=== PATIENT | female | born 1995 | race African-American/Black ===

== ENCOUNTER 2016-09-29 17:46 | Emergency (ER) | payer OTHER ==
[~2016-09-29] VITALS: Ht 162.6 cm; Wt 85.7 kg
[~2016-09-29 17:46] MED LIST: BACTRIM-DS1 EA PO; BENTYL10 MG ORAL; DONNATAL E16.2 MG/1 PO; DONNATAL TAB1 TAB PO; IBUPROFEN800 MG ORAL; NKM; POLYTRIM OP SOL10 ML OPHTHALM; TRAMADOL HCL50 MG ORAL; ZANTAC150 MG PO; bactrim suspension ORAL
[2016-09-29 18:11] VITALS: BP 104/70
[2016-09-29] MEDS ORDERED: HYDROCORTISONE28 G2 TP (18:31)
[2016-09-29] MEDS ORDERED: KENALOG 0.025%15 GM TP (18:31)
[2016-09-29] MEDS ORDERED: AQUAPHOR99 GM TP (18:31)
[2016-09-29] MEDS ORDERED: REGLAN10 MG ORAL (18:58)
[2016-09-29] MEDS ORDERED: IBUPROFEN600 MG ORAL (18:58)
[2016-09-29] MEDS ORDERED: Ketorolac 30mg Inj IM ONE (19:00)
[2016-09-29] MEDS ORDERED: Metoclopramide 10mg/10ml Liq ORAL ONE (19:00)
[2016-09-29 19:15] VITALS: BP 104/70
--- NOTE | 2016-09-29 19:25 | Emergency Room Report ---
History of Present Illness General Chief Complaint: Headache Source: Patient Present Illness HPI The patient is a 21-year-old female presenting for headache which began 3 days prior. The pain is described as an 8/10 frontal headache and does not radiate. The patient does admit to photophobia and nausea. The patient denies ever being diagnosed with migraines. The patient denies fever, neck pain or stiffness, vomiting, rash, chest pain, shortness of breath, abdominal pain Allergies: Coded Allergies: No Known Allergies (Unverified , 11/25/12) Patient History Past Medical History: see triage record Pertinent Family History: none Last Menstrual Period: 08/24/16 Reviewed Nursing Documentation: PMH: Agreed, PSxH: Agreed Nursing Documentation-PMH Past Medical History: No Stated History Hx Cancer: Yes - cervical cancer Review of Systems All Other Systems: negative except mentioned in HPI Physical Exam Vital Signs Date Time Temp Pulse Resp B/P Pulse Ox O2 Delivery O2 Flow Rate FiO2 09/29/16 17:51 98.1 77 16 104/70 100 Room Air Sp02 EP Interpretation: reviewed, normal General Appearance: no apparent distress, alert, GCS 15, non-toxic Head: normocephalic, atraumatic Eyes: bilateral eye PERRL, bilateral eye normal inspection ENT: hearing grossly normal, normal pharynx, no angioedema, normal voice Neck: full range of motion, supple/symm/no masses Respiratory: chest non-tender, lungs clear, normal breath sounds, speaking full sentences Cardiovascular #1: regular rate, rhythm, no edema Cardiovascular #2: 2+ carotid (R), 2+ carotid (L), 2+ radial (R), 2+ radial (L) , 2+ dorsalis pedis (R), 2+ dorsalis pedis (L) Gastrointestinal: normal bowel sounds, non tender, soft, non-distended, no guarding, no rebound Rectal: deferred Genitourinary: normal inspection, no CVA tenderness Musculoskeletal: back normal, gait/station normal, normal range of motion, non- tender Neurologic: alert, oriented x3, responsive, motor strength/tone normal, sensory intact, speech normal Psychiatric: judgement/insight normal, memory normal, mood/affect normal, no suicidal/homicidal ideation Reflexes: 3+ bicep (R), 3+ bicep (L), 3+ tricep (R), 3+ tricep (L), 3+ knee (R) , 3+ knee (L) Skin: normal color, no rash, warm/dry, well hydrated Lymphatic: no adenopathy Medical Decision Making PA Attestation Dr. Juarez is my supervising physician. Patient management was discussed with my supervising physician Diagnostic Impression: Primary Impression: Headache ER Course The patient is a 21-year-old female presenting for headache which began 3 days prior. Differential diagnoses include but not limited to Migraine, tension headache, dehydration PE: vitals within normal limits. No apparent distress Head is normocephalic atraumatic. Nontender. PERRL Full AROM of neck. Non tender. CN II-XII intact The patient is given Toradol and Reglan for pain with good relief. The patient will be discharged home with prescription for Reglan and Motrin. Patient will followup with primary care and is giving ER precautions Laboratory Tests Test 09/29/16 17:55 Urine HCG, Qualitative Negative Lab Results Impression Preg:neg Last Vital Signs Date Time Temp Pulse Resp B/P Pulse Ox O2 Delivery O2 Flow Rate FiO2 09/29/16 18:11 98.1 80 16 104/70 100 Room Air Status: improved Disposition: HOME, SELF-CARE Condition: Improved Scripts Metoclopramide Hcl* (REGLAN*) 10 Mg Tablet 10 MG ORAL THREE TIMES A DAY, #15 TAB Prov: ANIRUDH NAVARRO.A. 09/29/16 Ibuprofen* (MOTRIN*) 600 Mg Tablet 600 MG ORAL Q6H Y for For Pain, #30 TAB Prov: ANIRUDH NAVARRO.A. 09/29/16 Referrals: NON PHYSICIAN (PCP) Patient Instructions: General Headache Without Cause Additional Instructions: I discussed my findings with the patient. All questions and concerns have been answered. Treatment and medication compliance have been addressed. I advised the patient that they need to follow up with PMD in 3-5 days. Return to ED if symptoms worsen, new symptoms arise, or if needed for any reason. Patient verbalized understanding of discharge instructions. ANIRUDH NAVARRO Sep 29, 2016 19:25
== END 2016-09-29 19:38 | disposition home or self-care (01) ==
LOC: EMR 19:02
DX: R51 Headache (principal); H53.149 Visual discomfort, unspecified; R11.0 Nausea; Z85.41 Personal history of malignant neoplasm of cervix uteri
CPT/HCPCS: 81025; 96372; 99283; J1885

== ENCOUNTER 2017-02-22 17:09 | Emergency (ER) | payer OTHER ==
[~2017-02-22] VITALS: Ht 162.6 cm; Wt 100.7 kg
[~2017-02-22 17:09] MED LIST changes: +AQUAPHOR99 GM TP; +HYDROCORTISONE28 G2 TP; +IBUPROFEN600 MG ORAL; +KENALOG 0.025%15 GM TP; +REGLAN10 MG ORAL
[2017-02-22] MEDS ORDERED: AMOXICILLIN875 MG PO (17:34)
--- NOTE | 2017-02-22 17:37 | Emergency Room Report ---
History of Present Illness General Chief Complaint: To Be Triaged Present Illness HPI 21 y/o female c/o right sided jaw pain x 1 week. States that she has pain when she chews on her back wisdom tooth and feels a skin flap from the right side of her cheek that is swollen and sometimes gets between her teeth when she chews causing additional pain. Patient believes she may have a dental infection and is here for evaluation of sxs. No other modifying factors. Denies any current n/ v/f/c/d, abd pain, back pain, neck pain, photophobia, phonophobia, CP, SOB or headache. Allergies: Coded Allergies: No Known Allergies (Unverified , 11/25/12) Patient History Past Medical History: see triage record Past Surgical History: none Pertinent Family History: none Immunizations: UTD Reviewed Nursing Documentation: PMH: Agreed, PSxH: Agreed Nursing Documentation-PMH Hx Cancer: Yes - cervical cancer Review of Systems All Other Systems: negative except mentioned in HPI Physical Exam Vital Signs Date Time Temp Pulse Resp B/P Pulse Ox O2 Delivery O2 Flow Rate FiO2 02/22/17 17:32 98.6 69 18 125/80 99 Room Air Sp02 EP Interpretation: reviewed, normal General Appearance: no apparent distress, alert, GCS 15, non-toxic Head: normocephalic, atraumatic Eyes: bilateral eye normal inspection ENT: hearing grossly normal, normal pharynx, no angioedema, normal voice, uvula midline, other - right lower molar with pustular discharge. Neck: full range of motion, supple/symm/no masses Respiratory: chest non-tender, lungs clear, normal breath sounds, speaking full sentences Cardiovascular #1: regular rate, rhythm, no edema Musculoskeletal: gait/station normal Neurologic: alert, oriented x3, responsive, sensory intact, speech normal Psychiatric: judgement/insight normal, memory normal, mood/affect normal, no suicidal/homicidal ideation Skin: normal color, no rash, warm/dry, well hydrated Lymphatic: no adenopathy Medical Decision Making PA Attestation Dr. Hendrickson my supervising physician with whom patient management has been discussed with. Diagnostic Impression: Primary Impression: Dental caries Additional Impression: Infected tooth ER Course Pt. presents to the ED c/o tooth pain Ddx considered but are not limited to tooth fracture, chipped tooth, dental caries, dental infection, tooth abscess, tooth avulsion Vital signs: are WNL, pt. is afebrile H&PE are most consistent with dental caries with active infection ORDERS: none required at this time, the diagnosis is clinical ED INTERVENTIONS: none required at this time. DISCHARGE: At this time pt. is stable for d/c to home. Will provide printed patient care instructions, and any necessary prescriptions. Care plan and follow up instructions have been discussed with the patient prior to discharge. Chest X-Ray Diagnostic Results Chest X-Ray Ordered: No Last Vital Signs Date Time Temp Pulse Resp B/P Pulse Ox O2 Delivery O2 Flow Rate FiO2 02/22/17 17:49 98.6 18 125/80 99 Room Air 02/22/17 17:48 72 Status: unchanged Disposition: HOME, SELF-CARE Condition: Stable Scripts Amoxicillin (AMOXICILLIN) 875 Mg Tablet 875 MG PO Q12H for 7 Days, #14 TAB 0 Refills Prov: SAEID GRANT 02/22/17 Patient Instructions: Dental Abscess Additional Instructions: Keep mouth clean and rinse mouth out before and after each meal. Take medication as directed. Patient advised to follow up with dentist within 3-5 days. Patient should come back sooner if they experience any red areas that get bigger, more swollen, have pus draining from wound, or if the site becomes more painful. SAEID GRANT Feb 22, 2017 17:37
[2017-02-22 17:48] VITALS: BP 129/82
[2017-02-22 17:49] VITALS: BP 125/80
== END 2017-02-22 17:51 | disposition home or self-care (01) ==
LOC: EMR 17:25
DX: K02.9 Dental caries, unspecified (principal); K04.7 Periapical abscess without sinus; Z85.41 Personal history of malignant neoplasm of cervix uteri
CPT/HCPCS: 99283

== ENCOUNTER 2017-04-13 16:11 | Emergency (ER) | payer MEDICAID, OTHER ==
[~2017-04-13] VITALS: Ht 162.6 cm; Wt 90.7 kg
[~2017-04-13 16:11] MED LIST changes: +AMOXICILLIN875 MG PO
[2017-04-13] MEDS ORDERED: CHATEAL1 EACH PO (16:29)
[2017-04-13 16:49] VITALS: BP 114/77
--- NOTE | 2017-04-13 17:08 | Emergency Room Report ---
History of Present Illness General Chief Complaint: Nausea Source: Patient Present Illness HPI 21 YO Female presents to the ED c/O nausea and vomiting x 5 days. pt. denies abdominal pain, fevers, or chills. pt. denies , she reports some dysuria x 1 day. denies hematuria, frequency, constipation, or diarrhea. pt. denies ill contacts or recent travel. last bm was today. pt. Pt denies rashes. Pt. Denies CP, Palpitations, LOC, AMS, dizziness, Changes in Vision, Sensation, paresthesias, or a sudden severe headache. denies blood in the vomit or stool. pt. denies black tarry stools. Allergies: Coded Allergies: No Known Allergies (Unverified , 11/25/12) Patient History Past Medical History: see triage record Past Surgical History: none Pertinent Family History: none Last Menstrual Period: 03/31/17 Now: No Immunizations: UTD Reviewed Nursing Documentation: PMH: Agreed, PSxH: Agreed Nursing Documentation-PMH Hx Cancer: Yes - Cervical Cancer Review of Systems All Other Systems: negative except mentioned in HPI Physical Exam Vital Signs Date Time Temp Pulse Resp B/P Pulse Ox O2 Delivery O2 Flow Rate FiO2 04/13/17 16:22 98.8 70 16 111/75 98 Room Air Sp02 EP Interpretation: reviewed, normal General Appearance: no apparent distress, alert, GCS 15, non-toxic Head: normocephalic, atraumatic Eyes: bilateral eye PERRL, bilateral eye normal inspection ENT: hearing grossly normal, normal pharynx, no angioedema, normal voice Neck: full range of motion, supple/symm/no masses Respiratory: lungs clear, normal breath sounds, speaking full sentences Cardiovascular #1: regular rate, rhythm, no edema Gastrointestinal: normal bowel sounds, non tender, soft, no guarding, no rebound, other - Negative [place] signs, Negative MacBurney's sign, Negative Rosvigns Sign, Negative Psoas, No Peritoneal signs. Rectal: deferred Genitourinary: normal inspection, no CVA tenderness, no vertebral tenderness Musculoskeletal: back normal, gait/station normal, normal range of motion, non- tender Neurologic: alert, oriented x3, responsive, motor strength/tone normal, sensory intact, speech normal Psychiatric: judgement/insight normal, memory normal, mood/affect normal Skin: normal color, no rash, warm/dry, well hydrated Medical Decision Making PA Attestation Dr. iqbal is my supervising Physician whom patient management has been discussed with. Diagnostic Impression: Primary Impression: UTI (urinary tract infection) Qualified Codes: N30.01 - Acute cystitis with hematuria Additional Impression: Nausea and vomiting in adult patient ER Course 21 YO Female presents to the ED c/O nausea and vomiting x 5 days. pt. denies abdominal pain, fevers, or chills. pt. denies , she reports some dysuria x 1 day. denies hematuria, frequency, constipation, or diarrhea. pt. denies ill contacts or recent travel. last bm was today. pt. Pt denies rashes. Pt. Denies CP, Palpitations, LOC, AMS, dizziness, Changes in Vision, Sensation, paresthesias, or a sudden severe headache. denies blood in the vomit or stool. pt. denies black tarry stools. Ddx considered but are not limited to GE, colitis, acute appendicitis, SBO, * , dehydration Vital signs: pt. is afebrile, NAD, Non-Toxic H&PE are most consistent with GE will r/o , and assess for UTI, benign abdominal exam. i do not suspect an acute emergent condition at this time. ORDERS: -Urine Hcg: negative -UA: moderate bacteria with elevated leuks and wbc's and RBc's ED INTERVENTIONS: -4mg zofran PO for nausea. -Oral Fluid challenge: Pt. able to tolerate fluids. d/w pt. results of laboratory testing. offered to rx pt. zofran she states she just wants abx, she did not like the flavor of the zofran and felt more nauseated despite being able to tolerate fluids now. DISCHARGE: At this time pt. is stable for d/c to home. Will provide printed patient care instructions, and any necessary prescriptions. Care plan and follow up instructions have been discussed with the patient prior to discharge. Labs Test 04/13/17 16:42 Urine Color Yellow Urine Appearance Cloudy Urine pH 5 (4.5-8.0) Urine Specific [place] 1.020 (1.005-1.035) Urine Protein 1+ (NEGATIVE) Urine Glucose (UA) Negative (NEGATIVE) Urine Ketones Negative (NEGATIVE) Urine Occult Blood 1+ (NEGATIVE) Urine Nitrite Negative (NEGATIVE) Urine Bilirubin Negative (NEGATIVE) Urine Urobilinogen Normal MG/DL (0.0-1.0) Urine Leukocyte Esterase 3+ (NEGATIVE) Urine RBC 5-10 /HPF (0 - 2) Urine WBC 30-40 /HPF (0 - 2) Urine Squamous Epithelial Cells Many /LPF (NONE/OCC) Urine Bacteria Many /HPF (NONE) Urine HCG, Qualitative Negative Last Vital Signs Date Time Temp Pulse Resp B/P Pulse Ox O2 Delivery O2 Flow Rate FiO2 04/13/17 16:49 98.7 73 15 114/77 99 Room Air Disposition: HOME, SELF-CARE Condition: Stable Scripts Nitrofurantoin Monohyd/M-Cryst* (MACROBID 100 MG*) 100 Mg Capsule 100 MG ORAL EVERY 12 HOURS for 5 Days, #10 CAP Prov: Laura Ferguson 04/13/17 Patient Instructions: Nausea and Vomiting, Adult, Urinary Tract Infection, Easy -to-Read Additional Instructions: Take medications as directed. Follow up with a Primary Care Provider in 3-5 days, even if your symptoms have resolved. --Please review list of primary care clinics, if you do not already have a primary care provider Return sooner to ED if new symptoms occur, or current symptoms become worse. - Please note that this Emergency Department Report was dictated using [employer] h[employer] technology software, occasionally this can lead to erroneous entry secondary to interpretation by the dictation equipment. Laura Ferguson Apr 13, 2017 17:08
[2017-04-13 17:22] LABS: APPEARANCE,URINE CLOUDY; KETONES,URINE NEGATIVE (NEGATIVE); LEUKOCYTE ESTERASE ,URINE 3+ (NEGATIVE); NITRITE,URINE NEGATIVE (NEGATIVE); PH,URINE 5 (4.5-8.0); PROTEIN,URINE 1+ (NEGATIVE); UROBILINOGEN,URINE NORMAL MG/DL (0.0-1.0)
[2017-04-13 17:35] LABS: BACTERIA,URINE MANY /HPF; SQUAMOUS EPITHELIAL CELL,UR MANY /LPF (NONE/OCC); WBC,URINE 30-40 /HPF (0 - 2)
[2017-04-13] MEDS ORDERED: NITROFURANTOIN100 M2 ORAL (17:55)
[2017-04-13 18:06] VITALS: BP 114/77
== END 2017-04-13 18:07 | disposition home or self-care (01) ==
LOC: EMR 17:05
DX: R11.2 Nausea with vomiting, unspecified (principal); N30.01 Acute cystitis with hematuria; Z85.41 Personal history of malignant neoplasm of cervix uteri
CPT/HCPCS: 81003; 81025; 87086; 99283

== ENCOUNTER 2017-04-21 06:26 | Emergency (ER) | payer MEDICAID, OTHER ==
[~2017-04-21] VITALS: Ht 162.6 cm; Wt 90.7 kg
[~2017-04-21 06:26] MED LIST changes: +CHATEAL1 EACH PO; +NITROFURANTOIN100 M2 ORAL
[2017-04-21 07:09] LABS: APPEARANCE,URINE SLIGHTLY CLOUDY; KETONES,URINE NEGATIVE (NEGATIVE); LEUKOCYTE ESTERASE ,URINE 3+ (NEGATIVE); NITRITE,URINE NEGATIVE (NEGATIVE); PH,URINE 5 (4.5-8.0); PROTEIN,URINE 1+ (NEGATIVE); UROBILINOGEN,URINE 1 MG/DL (0.0-1.0)
--- NOTE | 2017-04-21 07:16 | Emergency Room Report ---
History of Present Illness General Chief Complaint: Allergic Reaction Source: Patient Present Illness HPI This patient states that she just finished a course of Macrobid this morning. She states after she took the Macrobid she felt itchy with a rash on her body. She was also concerned that she was having throat swelling. She denies any other new exposures. She states she feels much better than when she was seen last week. She denies fever or chills. She denies nausea or vomiting. She has no other complaints. Allergies: Coded Allergies: No Known Allergies (Unverified , 11/25/12) Patient History Past Medical History: none, see triage record Past Surgical History: other - LEEP, cervical ca Social History: Denies: alcohol use, drug use, smoking Last Menstrual Period: 04/07/17 Now: No Reviewed Nursing Documentation: PMH: Agreed, PSxH: Agreed Nursing Documentation-PMH Past Medical History: No History, Except For Hx Cancer: Yes - Cervical Cancer Hx Gastrointestinal Problems: No - Hx Neurological Problems: No - leep procedure and left knee surgery Review of Systems All Other Systems: negative except mentioned in HPI Physical Exam Vital Signs Date Time Temp Pulse Resp B/P Pulse Ox O2 Delivery O2 Flow Rate FiO2 04/21/17 06:33 98.1 82 16 124/81 98 Room Air Sp02 EP Interpretation: reviewed, normal General Appearance: no apparent distress, alert, GCS 15, non-toxic Head: normocephalic, atraumatic Eyes: bilateral eye PERRL, bilateral eye normal inspection ENT: hearing grossly normal, normal pharynx, no angioedema, normal voice Neck: full range of motion, supple/symm/no masses Respiratory: chest non-tender, lungs clear, normal breath sounds, speaking full sentences Cardiovascular #1: regular rate, rhythm, no edema Gastrointestinal: normal bowel sounds, non tender, soft, non-distended, no guarding, no rebound Rectal: deferred Musculoskeletal: back normal, gait/station normal, normal range of motion Neurologic: alert, oriented x3, responsive, motor strength/tone normal, sensory intact, speech normal Psychiatric: judgement/insight normal, memory normal, mood/affect normal, no suicidal/homicidal ideation Skin: warm/dry, well hydrated, other - erythema raised on L. anticubital region c/w hive. Medical Decision Making Diagnostic Impression: Primary Impression: Allergic reaction ER Course This patient has a clinical presentation consistent with a mild allergic reaction. There is severe edema on the left antecubital region that could be a high versus an area of excoriation secondary to pruritus. There are no obvious diffuse hives. Patient's oropharynx is clear. Patient lung exam is clear. Overall, this patient's evaluation is benign. There is no respiratory distress , stridor or evidence of anaphylaxis. I did give the patient oral Benadryl. I will also place the patient on Benadryl as an outpatient. The patient has finished her Macrobid to she has no further exposures. I reviewed the urine culture from her previous visit and it was only mixed growth. The patient feels much better from her previous visit. Overall she is well appearing. She is given close return precautions and followup instructions. Labs Test 04/21/17 06:50 Urine Color Yellow Urine Appearance Slightly cloudy Urine pH 5 (4.5-8.0) Urine Specific [place] 1.025 (1.005-1.035) Urine Protein 1+ (NEGATIVE) Urine Glucose (UA) Negative (NEGATIVE) Urine Ketones Negative (NEGATIVE) Urine Occult Blood 1+ (NEGATIVE) Urine Nitrite Negative (NEGATIVE) Urine Bilirubin Negative (NEGATIVE) Urine Urobilinogen 1 MG/DL (0.0-1.0) Urine Leukocyte Esterase 3+ (NEGATIVE) Urine RBC 2-4 /HPF (0 - 2) Urine WBC 5-10 /HPF (0 - 2) Urine Squamous Epithelial Cells Moderate /LPF (NONE/OCC) Urine Bacteria Few /HPF (NONE) Urine Mucus Few /LPF (NONE/OCC) Last Vital Signs Date Time Temp Pulse Resp B/P Pulse Ox O2 Delivery O2 Flow Rate FiO2 04/21/17 06:33 98.1 82 16 124/81 98 Room Air Status: improved Disposition: HOME, SELF-CARE Condition: Improved Patient Instructions: Drug Allergy MERRY LEACH D.O. Apr 21, 2017 07:15
[2017-04-21 07:27] LABS: BACTERIA,URINE FEW /HPF; MUCUS,URINE FEW /LPF (NONE/OCC); SQUAMOUS EPITHELIAL CELL,UR MODERATE /LPF (NONE/OCC)
[2017-04-21] MEDS ORDERED: BENADRYL25 MG ORAL (07:37)
[2017-04-21 07:42] VITALS: BP 121/76
== END 2017-04-21 07:42 | disposition home or self-care (01) ==
LOC: EMR 07:12
DX: R21 Rash and other nonspecific skin eruption (principal); Z85.41 Personal history of malignant neoplasm of cervix uteri; T37.8X5A Adverse effect of other specified systemic anti-infectives and antiparasitics, initial encounter; Y92.9 Unspecified place or not applicable
CPT/HCPCS: 81003; 99283

== ENCOUNTER 2017-07-10 14:16 | Emergency (ER) | payer OTHER ==
[~2017-07-10] VITALS: Ht 162.6 cm; Wt 81.6 kg
[~2017-07-10 14:16] MED LIST changes: +BENADRYL25 MG ORAL
[2017-07-10] MEDS ORDERED: AZITHROMYCIN250 MG ORAL (14:39)
[2017-07-10] MEDS ORDERED: PROMETH-CODEIN 65 ML PO (14:39)
[2017-07-10] MEDS ORDERED: ALBUTEROL SULF8.5 GM INH (14:39)
[2017-07-10 14:49] VITALS: BP 118/75
[2017-07-10 14:50] VITALS: BP 118/75
--- NOTE | 2017-07-10 15:15 | Emergency Room Report ---
History of Present Illness General Chief Complaint: Upper Respiratory Illness Source: Patient, Medical Record Present Illness HPI Patient presents emergency department today complaining of cough and congestion. Patient also complains of headache sinus symptoms. Patient also complains of sore throat. Patient states that she's had symptoms for about 2 weeks. She has some shortness of breath which is coughing. She states that she cannot sleep for a wall because of headache and coughing. She denies any fever. There is no neck pain. There is no leg pain leg swelling. Symptoms noted to be moderate. Patient will likely start antibiotics in the severity of her symptoms. No other modifying factors. No other associated signs and symptoms. No other complaints were noted. Allergies: Coded Allergies: No Known Allergies (Unverified , 11/25/12) Patient History Past Medical History: none Past Surgical History: none Pertinent Family History: none Social History: Denies: smoking, alcohol use, drug use Last Menstrual Period: 05/31/17 Reviewed Nursing Documentation: PMH: Agreed, PSxH: Agreed Nursing Documentation-PMH Past Medical History: No History, Except For Hx Cancer: Yes - Cervical Cancer Hx Gastrointestinal Problems: No - Hx Neurological Problems: No - leep procedure and left knee surgery Review of Systems All Other Systems: negative except mentioned in HPI Physical Exam Vital Signs Date Time Temp Pulse Resp B/P (MAP) Pulse Ox O2 Delivery O2 Flow Rate FiO2 07/10/17 14:19 98.2 95 16 118/75 98 Room Air Sp02 EP Interpretation: reviewed, normal General Appearance: normal inspection, well appearing, no apparent distress, alert Head: atraumatic Eyes: bilateral eye normal inspection ENT: normal ENT inspection, hearing grossly normal, normal voice, other - nasal congestion Neck: normal inspection, full range of motion, supple, no bony tend Respiratory: normal inspection, lungs clear, normal breath sounds, no respiratory distress, no retraction, no wheezing Cardiovascular #1: regular rate, rhythm, no edema Gastrointestinal: normal inspection, normal bowel sounds, non tender, soft, no guarding, no hernia Genitourinary: no CVA tenderness Musculoskeletal: normal inspection, back normal, normal range of motion Neurologic: normal inspection, alert, responsive, speech normal Psychiatric: normal inspection, judgement/insight normal, mood/affect normal Skin: normal inspection, normal color, no rash Medical Decision Making Diagnostic Impression: Primary Impression: Cough ER Course Patient presents emergency department today complaining cough congestion and some sinus tenderness and sore throat. Differential considerations include viral syndrome, pneumonia, sinusitis just name a few. Patient has symptoms greater than 2 weeks. Therefore I felt that l could be a complicated sinusitis and patient should start to take antibiotics. Patient was given a prescription for Zithromax. Patient was given cough syrup and albuterol.Patient is advised to follow up with primary doctor in 2-3 days and return the emergency room for any worsening symptoms and as needed. Last Vital Signs Date Time Temp Pulse Resp B/P (MAP) Pulse Ox O2 Delivery O2 Flow Rate FiO2 07/10/17 14:50 98.2 92 16 118/75 98 Room Air Status: improved Disposition: HOME, SELF-CARE Condition: Stable Scripts Promethazine HCl/Codeine (Prometh-Codein 6.25-10 mg/5 ml) 5 Ml Syrup 5 ML PO TID for For Cough for 7 Days, ML Prov: JEREMIAS PIMENTEL M.D. 07/10/17 Azithromycin* (ZITHROMAX*) 250 Mg Tablet 250 MG ORAL DAILY, #6 TAB 0 Refills Take two tablets by mouth today, then take one tablet by mouth daily for four days Prov: JEREMIAS PIMENTEL M.D. 07/10/17 Albuterol Sulfate* (ALBUTEROL SULFATE MDI*) 8.5 Gm Hfa.aer.ad 2 PUFF INH Q4H Y for cough/wheezing, #1 EA 0 Refills Prov: JEREMIAS PIMENTEL M.D. 07/10/17 Referrals: [facility] (PCP) Departure Forms: Return to School, Return to School On: Jul 14, 2017 School Release Restrictions: None Return to Work Return to Work in (Days): 3 Return to Work Date: Jul 14, 2017 Patient Instructions: Sinusitis, Adult JEREMIAS PIMENTEL M.D. Jul 10, 2017 15:15
== END 2017-07-10 14:50 | disposition home or self-care (01) ==
LOC: EMR 14:30
DX: R05 Cough (principal); Z85.41 Personal history of malignant neoplasm of cervix uteri
CPT/HCPCS: 99283

== ENCOUNTER 2017-08-21 22:31 | Emergency (ER) | payer OTHER ==
[~2017-08-21] VITALS: Ht 162.6 cm; Wt 81.6 kg
[~2017-08-21 22:31] MED LIST changes: +ALBUTEROL SULF8.5 GM INH; +AZITHROMYCIN250 MG ORAL; +PROMETH-CODEIN 65 ML PO
[2017-08-21 23:00] VITALS: BP 110/70
--- NOTE | 2017-08-21 23:01 | Emergency Room Report ---
History of Present Illness General Chief Complaint: Chest Pain Source: Patient Present Illness HPI 22-year-old female walked in with 2-3 days of chest pain Pain worse with deep breathing Pain worse with movement Associated with cough but cough has been better Eyes any fevers chills or other URI symptoms Per Emr, patient here about a month ago with URI symptoms, was given Z-Armando and supportive treatment Denies smoking, asthma history, other medical problems Denies history of early ACS or PE in family Did not take any medication for pain Allergies: Coded Allergies: No Known Allergies (Unverified , 11/25/12) Patient History Past Medical History: none Past Surgical History: none Pertinent Family History: none Social History: Denies: smoking, alcohol use, drug use Last Menstrual Period: 07/19/17 Now: No Immunizations: UTD Reviewed Nursing Documentation: PMH: Agreed, PSxH: Agreed Nursing Documentation-PMH Hx Cancer: Yes - Cervical Cancer Hx Gastrointestinal Problems: No - Hx Neurological Problems: No - leep procedure and left knee surgery Review of Systems All Other Systems: negative except mentioned in HPI Physical Exam Vital Signs Date Time Temp Pulse Resp B/P (MAP) Pulse Ox O2 Delivery O2 Flow Rate FiO2 08/21/17 22:45 98.2 79 12 117/67 96 Room Air Sp02 EP Interpretation: reviewed, normal General Appearance: normal inspection, well appearing, no apparent distress, alert, GCS 15, non-toxic, obese Head: normocephalic, atraumatic Eyes: bilateral eye PERRL, bilateral eye EOMI ENT: normal ENT inspection, hearing grossly normal, normal voice Neck: normal inspection, full range of motion, supple, no bony tend Respiratory: normal inspection, lungs clear, normal breath sounds, no respiratory distress, no retraction, no accessory muscle use, no wheezing, speaking full sentences, other - Palpation midsternum recreates pain, chest symmetrical Cardiovascular #1: regular rate, rhythm, no edema Gastrointestinal: normal inspection, normal bowel sounds, non tender, soft, no guarding, no hernia Genitourinary: no CVA tenderness Musculoskeletal: normal inspection, back normal, normal range of motion, Vero' s Sign negative Neurologic: normal inspection, alert, oriented x3, responsive, 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 nml as tested, motor strength/tone normal, speech normal Psychiatric: normal inspection, judgement/insight normal, mood/affect normal Skin: normal inspection, normal color, no rash Lymphatic: normal inspection Medical Decision Making Diagnostic Impression: Primary Impression: Chest pain Qualified Codes: R07.9 - Chest pain, unspecified ER Course 22-year-old female with chest pain Signs stable, afebrile Low suspicion for ACS or PE given well appearance, normal vital signs, and duration of symptoms, and no CAD risk factors, no PE risk factors ECg no ischemia or Right heart strain Recent URI symptoms, possibly contributing to costochondritis Was given IM Toradol with improvement No history of asthma or smoking or COPD Lungs clear on exam, low suspicion for pneumothorax Recommended Motrin, close to primary care followup ER course: Patient has remained stable during ED stay. Patient is to be discharged to home. Prescriptions given are motrin Patient is instructed to follow up with their primary care doctor within 5 days. Strict return precautions discussed with patient such as fever, chills, worsening/severe pain, nausea, vomiting, which may indicate severe illness. Patient verbalizes understanding and agrees with plan. Please note that this Emergency Department Report was dictated using [employer] development specialist technology software, occasionally this can lead to erroneous entry secondary to interpretation by the dictation equipment EKG Diagnostic Results Rate: normal Rhythm: NSR ST Segments: no acute changes ASA given to the pt in ED: No Last Vital Signs Date Time Temp Pulse Resp B/P (MAP) Pulse Ox O2 Delivery O2 Flow Rate FiO2 08/21/17 22:45 98.2 79 12 117/67 96 Room Air Status: improved Disposition: HOME, SELF-CARE MIGUEL ANGEL ALFONSO M.D. Aug 21, 2017 23:01
[2017-08-21] MEDS ORDERED: IBUPROFEN600 MG ORAL (23:14)
[2017-08-21] MEDS ORDERED: Ketorolac 60mg Inj IM ONE (23:15)
[2017-08-21 23:24] VITALS: BP 110/70
== END 2017-08-21 23:23 | disposition home or self-care (01) ==
LOC: EMR 22:59
DX: R07.9 Chest pain, unspecified (principal); Z85.41 Personal history of malignant neoplasm of cervix uteri; Z98.890 Other specified postprocedural states
CPT/HCPCS: 96372; 99283

== ENCOUNTER 2017-09-25 23:08 | Emergency (ER) | payer OTHER ==
[~2017-09-25] VITALS: Ht 162.6 cm; Wt 101.2 kg
[2017-09-25] MEDS ORDERED: NKM (23:19)
[2017-09-26] MEDS ORDERED: ZOFRAN ODT4 MG ORAL (00:06)
[2017-09-26 00:31] VITALS: BP 128/80
--- NOTE | 2017-09-26 02:06 | Emergency Room Report ---
History of Present Illness General Chief Complaint: Vomiting Source: Patient Present Illness HPI Patient was diagnosed several days ago with bacterial vaginosis is on Flagyl Patient has previous diarrhea Now had 2 episodes of nausea and vomiting Had some mild epigastric discomfort and lower suprapubic discomfort Denies any chest pain or shortness of breath denies any neck pain or photophobia Given the new symptoms patient was concerning came to the ER Allergies: Coded Allergies: No Known Allergies (Unverified , 11/25/12) Patient History Past Medical History: see triage record Pertinent Family History: none Last Menstrual Period: Aug Reviewed Nursing Documentation: PMH: Agreed, PSxH: Agreed Nursing Documentation-PMH Hx Cancer: Yes - Cervical Cancer Hx Gastrointestinal Problems: No - Hx Neurological Problems: No - leep procedure and left knee surgery Review of Systems All Other Systems: negative except mentioned in HPI Physical Exam Vital Signs Date Time Temp Pulse Resp B/P (MAP) Pulse Ox O2 Delivery O2 Flow Rate FiO2 09/25/17 23:14 98.1 84 16 128/80 100 Room Air Sp02 EP Interpretation: reviewed, normal General Appearance: well appearing, no apparent distress Head: normocephalic, atraumatic Eyes: bilateral eye EOMI, bilateral eye other - Patient has colored contacts and the pupil exam is difficult ENT: hearing grossly normal, normal pharynx, TMs + canals normal, uvula midline Neck: full range of motion, supple, no meningismus, no bony tend Respiratory: lungs clear, normal breath sounds, no rhonchi, no respiratory distress, no retraction, no accessory muscle use Cardiovascular #1: normal peripheral pulses, regular rate, rhythm, no edema, no gallop, no JVD, no murmur Gastrointestinal: normal bowel sounds, non tender, soft, no mass, no organomegaly, non-distended, no guarding, no hernia, no pulsatile mass, no rebound Genitourinary: no CVA tenderness Musculoskeletal: normal inspection Neurologic: oriented x3, responsive, financial supervisor III-XII nml as tested, motor strength/ tone normal, sensory intact Psychiatric: mood/affect normal Skin: normal color, no rash, warm/dry, palpation normal Lymphatic: normal inspection, no adenopathy Medical Decision Making Diagnostic Impression: Primary Impression: vomiting Additional Impression: abdominal pain ER Course With the patient's history and examination, multiple differentials considered, including but not limited to , ectopic , ovarian torsion, gastritis, cholecystitis, pancreatitis, appendicitis Patient's abdominal exam is fairly benign At this time given the vomiting and diarrhea likely viral pathology Patient also has been on Flagyl which could be essentially causing some discomfort as well Patient otherwise does not appear septic or toxic did not require initial blood work evaluations in the ER and will have close outpatient followup Last Vital Signs Date Time Temp Pulse Resp B/P (MAP) Pulse Ox O2 Delivery O2 Flow Rate FiO2 09/26/17 00:31 98.1 86 16 128/80 100 Room Air Status: improved Disposition: HOME, SELF-CARE Condition: Improved Scripts Ondansetron Odt* (ZOFRAN ODT*) 4 Mg Tab.rapdis 4 MG ORAL Q8HR Y for Nausea & Vomiting, #12 TAB 0 Refills Prov: RHODA OATES D.O. 09/26/17 Referrals: [facility],REFERRING (PCP) Patient Instructions: Nausea and Vomiting, Adult, Abdominal Pain, Adult, Easy- to-Read Additional Instructions: Patient is provided with the discharge instructions notified to follow up with primary doctor in the next 2-3 days otherwise return to the er with any worsening symptoms. Please note that this report is being documented using [email or web address] technology. This can lead to erroneous entry secondary to incorrect interpretation by the dictating instrument. RHODA OATES D.O. Sep 26, 2017 02:06
== END 2017-09-26 00:33 | disposition home or self-care (01) ==
LOC: EMR 23:42
DX: R11.10 Vomiting, unspecified (principal); R10.9 Unspecified abdominal pain; Z85.41 Personal history of malignant neoplasm of cervix uteri
CPT/HCPCS: 99283

== ENCOUNTER 2017-11-07 21:34 | Emergency (ER) | payer MEDICAID, OTHER ==
[~2017-11-07] VITALS: Ht 162.6 cm; Wt 127.0 kg
[~2017-11-07 21:34] MED LIST changes: +ZOFRAN ODT4 MG ORAL
[2017-11-07 21:50] VITALS: BP 122/82
[2017-11-07] MEDS ORDERED: PSEUDOEPHEDRINE60 MG PO (22:09)
[2017-11-07] MEDS ORDERED: IBUPROFEN600 MG ORAL (22:09)
--- NOTE | 2017-11-07 22:09 | Emergency Room Report ---
History of Present Illness General Chief Complaint: General Complaint Source: Patient Present Illness HPI Is a 22-year-old female with no past medical history. She presents with 2-3 days history of congestion ear popping, sore throat, cough. Denies any chest pain. Denies any sputum. Pain is 7/10. Allergies: Coded Allergies: NITROFURANTOIN (Verified Allergy, Unknown, 11/07/17) Patient History Past Medical History: see triage record, old chart reviewed Past Surgical History: none Pertinent Family History: none Social History: Denies: smoking Last Menstrual Period: oct 01 Now: No : 1 Immunizations: other Reviewed Nursing Documentation: PMH: Agreed, PSxH: Agreed Nursing Documentation-PMH Hx Cancer: Yes - Cervical Cancer Hx Gastrointestinal Problems: No - Hx Neurological Problems: No - leep procedure and left knee surgery Review of Systems Eye: Denies: eye pain, blurred vision ENT: Reports: ear pain, nose congestion, throat pain, Denies: throat swelling Respiratory: Reports: cough, Denies: shortness of breath Cardiovascular: Denies: chest pain, palpitations Gastrointestinal: Denies: abdominal pain, diarrhea, nausea, vomiting Musculoskeletal: Denies: back pain, joint pain Skin: Denies: rash Neurological: Denies: headache, numbness Endocrine: Denies: increased thirst, increased urine Hematologic/Lymphatic: Denies: easy bruising All Other Systems: negative except mentioned in HPI Physical Exam Vital Signs Date Time Temp Pulse Resp B/P (MAP) Pulse Ox O2 Delivery O2 Flow Rate FiO2 11/07/17 21:43 98.0 78 18 119/81 99 Room Air 98.1 vitals normal Sp02 EP Interpretation: reviewed, normal General Appearance: well appearing, no apparent distress, alert Head: normocephalic, atraumatic Eyes: bilateral eye PERRL, bilateral eye EOMI ENT: hearing grossly normal, normal pharynx, other - Small effusion in left TM Neck: full range of motion, supple, no meningismus Respiratory: chest non-tender, lungs clear, normal breath sounds Cardiovascular #1: regular rate, rhythm, no murmur Gastrointestinal: normal bowel sounds, non tender, no mass, no organomegaly, no bruit, non-distended Musculoskeletal: back normal, gait/station normal, normal range of motion Psychiatric: mood/affect normal Skin: warm/dry Medical Decision Making Diagnostic Impression: Primary Impression: URI (upper respiratory infection) Qualified Codes: J06.9 - Acute upper respiratory infection, unspecified ER Course Patient presents with a viral illness. No evidence of sepsis, meningitis, or other serious bacterial infection. Last Vital Signs Date Time Temp Pulse Resp B/P (MAP) Pulse Ox O2 Delivery O2 Flow Rate FiO2 11/07/17 21:43 98.0 78 18 119/81 99 Room Air 98.1 Status: unchanged Disposition: HOME, SELF-CARE Condition: Stable Scripts Pseudoephedrine Hcl* (SUDAFED*) 60 Mg Tablet 60 MG PO Q6H, #20 TAB Prov: ELLIOTT CASTILLO M.D. 11/07/17 Ibuprofen* (MOTRIN*) 600 Mg Tablet 600 MG ORAL Q6H Y for For Pain, #30 TAB Prov: ELLIOTT CASTILLO M.D. 11/07/17 Additional Instructions: Followup with your Dr. in 7 days. Return if symptom worsen. ELLIOTT CASTILLO M.D. Nov 07, 2017 22:09
[2017-11-07 22:15] VITALS: BP 125/79
[2017-11-07 22:20] VITALS: BP 125/79
== END 2017-11-07 22:20 | disposition home or self-care (01) ==
LOC: EMR 21:55
DX: J06.9 Acute upper respiratory infection, unspecified (principal); Z88.0 Allergy status to penicillin; Z85.41 Personal history of malignant neoplasm of cervix uteri
CPT/HCPCS: 99283

== ENCOUNTER 2017-11-18 12:05 | Emergency (ER) | payer OTHER ==
[~2017-11-18] VITALS: Ht 162.6 cm; Wt 98.4 kg
[~2017-11-18 12:05] MED LIST changes: +PSEUDOEPHEDRINE60 MG PO
[2017-11-18] MEDS ORDERED: Tetracaine 0.5% Opth 4ml Soln LEFT EYE ONE (12:30)
[2017-11-18] MEDS ORDERED: Fluorescein Strips LEFT EYE ONE (12:30)
[2017-11-18 12:35] VITALS: BP 120/79
--- NOTE | 2017-11-18 12:35 | Emergency Room Report ---
History of Present Illness General Chief Complaint: Eye Problems Source: Patient, Medical Record Present Illness HPI 22 yo female patient presents to ER complaining of left eye redness x2 days. Patient complains of itchiness and photophobia. Reports feeling of "scratched eye". Patient reports wearing contacts. Reports yellow crusting of eyes. Patient denies contact with similar symptoms. Denies pain with eye movement. Patient denies fever, nausea, vomiting, vertigo. Patient denies chest pain, SOB, rash. Allergies: Coded Allergies: NITROFURANTOIN (Verified Allergy, Unknown, 11/07/17) Patient History Past Medical History: see triage record Last Menstrual Period: 10/01/17 Reviewed Nursing Documentation: PMH: Agreed, PSxH: Agreed Nursing Documentation-PMH Past Medical History: No History, Except For Hx Cancer: Yes - Cervical Cancer Hx Gastrointestinal Problems: No - Hx Neurological Problems: No - leep procedure and left knee surgery Review of Systems All Other Systems: negative except mentioned in HPI Physical Exam Vital Signs Date Time Temp Pulse Resp B/P (MAP) Pulse Ox O2 Delivery O2 Flow Rate FiO2 11/18/17 12:13 99.1 82 18 120/79 98 Room Air 99.1 Sp02 EP Interpretation: reviewed, normal General Appearance: well appearing, no apparent distress, alert, GCS 15 Head: normocephalic, atraumatic Eyes: left eye photophobia, left eye Scleral Injection, bilateral eye normal inspection, bilateral eye PERRL, bilateral eye EOMI ENT: hearing grossly normal, normal pharynx, no angioedema, normal voice, uvula midline, moist mucus membranes Neck: full range of motion Respiratory: lungs clear, normal breath sounds, no rhonchi, no respiratory distress, no accessory muscle use, no wheezing, speaking full sentences Cardiovascular #1: regular rate, rhythm Musculoskeletal: back normal, digits/nails normal, gait/station normal, normal range of motion, non-tender Neurologic: alert, oriented x3, responsive, motor strength/tone normal, sensory intact Skin: no rash Lymphatic: no adenopathy Medical Decision Making PA Attestation Dr. Sullivan is my supervising Physician whom patient management has been discussed with. Diagnostic Impression: Primary Impression: Bacterial conjunctivitis of left eye ER Course Pt. presents to the ED c/o eye pain. Ddx considered but are not limited to FB in eye, corneal abrasion, corneal ulcer , blepharitis, subconjunctival hemorrhage. Vital signs: are WNL, pt. is afebrile PERFORM VISUAL ACUITY: performed without contacts. See nurse chart for results. Patient does not have glasses. Patient instructed to follow up with home attendant. Lid Eversion ORDERS: Ophthalmic Tetracaine. Fluorescein stain of left eye. No uptake of fluorescein, negative for corneal abrasion. ED INTERVENTIONS: None required at this time. DISCHARGE: - Rx provided for OCUFLOX, place 2 drops in affected eye BID for 7 days At this time pt. is stable for d/c to home. Patient resting comfortably, in no acute distress, nontoxic appearing, smiling and laughing. Will provide printed patient care instructions and any necessary prescriptions. Care plan and follow up instructions have been discussed with the patient prior to discharge Follow-up with clinical trial educator in 24 hours. Do not scratch or rub eye. Follow-up with primary care provider in 1- 3 days. Take medications as directed. Patient questions asked and answered. ER precautions given, patient instructed to return to ER immediately for any new or worsening of symptoms. Last Vital Signs Date Time Temp Pulse Resp B/P (MAP) Pulse Ox O2 Delivery O2 Flow Rate FiO2 11/18/17 12:13 99.1 82 18 120/79 98 Room Air 99.1 Disposition: HOME, SELF-CARE Condition: Stable Scripts Ofloxacin (OCUFLOX) 5 Ml Drops 2 DROP OP Q4HR for 7 Days, ML Prov: Jamarcus Still 11/18/17 Patient Instructions: Bacterial Conjunctivitis, [id number] Additional Instructions: Followup with primary care provider in 1-3 days. Followup with eye doctor for further treatment. Do not touch eyes. Take medications as directed. Patient questions asked and answered. ER precautions given, patient instructed to return to ER immediately for any new or worsening of symptoms. Jamarcus Still Nov 18, 2017 12:35
[2017-11-18] MEDS ORDERED: OCUFLOX5 ML OP (12:46)
[2017-11-18 12:54] VITALS: BP 120/79
== END 2017-11-18 14:00 | disposition home or self-care (01) ==
LOC: EMR 13:30
DX: H10.9 Unspecified conjunctivitis (principal); B96.89 Other specified bacterial agents as the cause of diseases classified elsewhere; Z85.41 Personal history of malignant neoplasm of cervix uteri
CPT/HCPCS: 99283

== ENCOUNTER 2017-12-31 22:22 | Emergency (ER) | payer OTHER ==
[~2017-12-31] VITALS: Ht 162.6 cm; Wt 98.4 kg
[~2017-12-31 22:22] MED LIST changes: +OCUFLOX5 ML OP
[2017-12-31] MEDS ORDERED: CHATEAL1 EACH PO (22:32)
[2017-12-31 22:46] VITALS: BP 134/83
[2017-12-31] MEDS ORDERED: IBUPROFEN600 MG ORAL (23:12)
[2017-12-31] MEDS ORDERED: AZITHROMYCIN250 MG ORAL (23:12)
--- NOTE | 2017-12-31 23:12 | Emergency Room Report ---
History of Present Illness General Chief Complaint: Sore Throat Source: Patient, Medical Record Present Illness HPI Is a 22-year-old female with no significant past medical history. She presents with chief complaint of sore throat. Onset for last 2 days. Her tonsils are large and she has subjective fever. Also with exudates. No drooling. No nausea no vomiting. Worse with swallowing. No cough or congestion Allergies: Coded Allergies: NITROFURANTOIN (Verified Allergy, Unknown, 11/07/17) Patient History Past Medical History: see triage record, old chart reviewed Past Surgical History: none Pertinent Family History: none Social History: Denies: smoking Last Menstrual Period: 12/20/17 Now: No : 1 Para: 0 Immunizations: other Reviewed Nursing Documentation: PMH: Agreed; PSxH: Agreed Nursing Documentation-PMH Hx Cancer: Yes - Cervical Cancer Hx Gastrointestinal Problems: No - Hx Neurological Problems: No - leep procedure and left knee surgery Review of Systems Constitutional: Reports: fever Eye: Denies: eye pain, blurred vision ENT: Reports: throat pain, throat swelling; Denies: ear pain, nose congestion Respiratory: Denies: cough, shortness of breath Cardiovascular: Denies: chest pain, palpitations Gastrointestinal: Denies: abdominal pain, diarrhea, nausea, vomiting Musculoskeletal: Denies: back pain, joint pain Skin: Denies: rash Neurological: Denies: headache, numbness Endocrine: Denies: increased thirst, increased urine Hematologic/Lymphatic: Denies: easy bruising All Other Systems: negative except mentioned in HPI Physical Exam Vital Signs Date Time Temp Pulse Resp B/P (MAP) Pulse Ox O2 Delivery O2 Flow Rate FiO2 12/31/17 22:28 97.7 76 14 134/83 97 Room Air 97.7 vitals normal Sp02 EP Interpretation: reviewed, normal General Appearance: well appearing, no apparent distress, alert Head: normocephalic, atraumatic Eyes: bilateral eye PERRL, bilateral eye EOMI ENT: hearing grossly normal, tonsillar swelling, pharyngeal erythema, tonsillar exudate Neck: full range of motion, supple, no meningismus Respiratory: chest non-tender, lungs clear, normal breath sounds Cardiovascular #1: regular rate, rhythm, no murmur Gastrointestinal: normal bowel sounds, non tender, no mass, no organomegaly, no bruit, non-distended Musculoskeletal: back normal, gait/station normal, normal range of motion Psychiatric: mood/affect normal Skin: warm/dry Medical Decision Making Diagnostic Impression: Primary Impression: Acute tonsillitis Qualified Codes: J03.00 - Acute streptococcal tonsillitis, unspecified ER Course Patient with exudative tonsillitis. Most likely strep since she has no other viral symptoms. We'll discharge home. No evidence of peritonsillar abscess, retropharyngeal abscess or Hayden angina. Last Vital Signs Date Time Temp Pulse Resp B/P (MAP) Pulse Ox O2 Delivery O2 Flow Rate FiO2 12/31/17 22:46 97.7 76 14 134/83 97 Room Air 97.7 Status: unchanged Disposition: HOME, SELF-CARE Condition: Stable Scripts Azithromycin* (ZITHROMAX*) 250 Mg Tablet 250 MG ORAL DAILY, #6 TAB 0 Refills Take two tablets by mouth today, then take one tablet by mouth daily for four days Prov: ELLIOTT CASTILLO M.D. 12/31/17 Ibuprofen* (MOTRIN*) 600 Mg Tablet 600 MG ORAL THREE TIMES A DAY, #30 TAB 0 Refills Prov: ELLIOTT CASTILLO M.D. 12/31/17 Patient Instructions: Strep Throat Additional Instructions: Increase fluids. Salt water gargle. Return if worse. ELLIOTT CASTILLO M.D. Dec 31, 2017 23:12
[2017-12-31 23:25] VITALS: BP 134/83
== END 2017-12-31 23:25 | disposition home or self-care (01) ==
LOC: EMR 23:18
DX: J03.90 Acute tonsillitis, unspecified (principal); Z85.41 Personal history of malignant neoplasm of cervix uteri
CPT/HCPCS: 99284; J7512

== ENCOUNTER 2018-01-04 04:38 | Emergency (ER) | payer OTHER ==
[~2018-01-04] VITALS: Ht 162.6 cm; Wt 98.4 kg
[2018-01-04 04:57] VITALS: BP 140/85
--- NOTE | 2018-01-04 05:26 | Emergency Room Report ---
History of Present Illness General Chief Complaint: Sore Throat Source: Patient, Medical Record Present Illness HPI Patient re-presents to the emergency department after being started on azithromycin for pharyngitis. She was treated in the ED with prednisone 60 mg initially. She still has throat pain. She's been taking ibuprofen 600 mg round the clock. She has pain with swallowing. She was diagnosed with strep at that time. Pain rated 10/10 in throat, bilaterally, worse with swallowing. Feverish. Achy. She has a mild non-productive cough. The pain is keeping her awake at night. 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 No abdominal pain, dysuria, chest pain, neck stiffness, difficulty breathing. She has some hoarseness that has been constant. 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 Last Menstrual Period: 12/20/17 Now: No Reviewed Nursing Documentation: PMH: Agreed; PSxH: Agreed Nursing Documentation-PMH Past Medical History: No History, Except For Hx Asthma: No - Tonsilitis Hx Cancer: Yes - Cervical Cancer (LEEP procedure) Hx Gastrointestinal Problems: No - Hx Neurological Problems: No - Left knee surgery Review of Systems All Other Systems: negative except mentioned in HPI Physical Exam Vital Signs Date Time Temp Pulse Resp B/P (MAP) Pulse Ox O2 Delivery O2 Flow Rate FiO2 01/04/18 04:41 98.2 87 16 140/85 98 Room Air 98.2 Sp02 EP Interpretation: reviewed, normal General Appearance: well appearing, no apparent distress Head: normocephalic, atraumatic Eyes: bilateral eye normal inspection, bilateral eye PERRL ENT: hearing grossly normal, normal voice, pharyngeal erythema, tonsillar exudate Neck: full range of motion, supple Respiratory: no respiratory distress, speaking full sentences Gastrointestinal: normal inspection, other - no splenomegally Musculoskeletal: gait/station normal, non-tender Neurologic: alert, normal gait, grossly normal Psychiatric: mood/affect normal Skin: no rash Lymphatic: other - no posterior chain nodes Medical Decision Making Diagnostic Impression: Primary Impression: Exudative pharyngitis ER Course The patient presents with throat pain. She's on azithromycin and received prednisone. Ibuprofen she states is not helping. She has pain with swallowing mainly. DDX: viral, mononucleosis, partially treated strep. No evidence of peritonsillar abscess or retropharyngeal abscess. Lack of posterior chain nodes and splenic tenderness somewhat against mono. Tolerating oral adequately. Agreed to trial of viscous lidocaine. Much improved after viscous lidocaine. Discussed most likely diagnosis and that improvement is expected. Also possibility of mono and that time would determine this diagnosis. Patient understands. Patient stable for outpatient observation and treatment. Last Vital Signs Date Time Temp Pulse Resp B/P (MAP) Pulse Ox O2 Delivery O2 Flow Rate FiO2 01/04/18 05:47 98.2 87 16 140/85 98 Room Air 98.2 Status: improved Disposition: HOME, SELF-CARE Condition: Improved Scripts Guaifenesin/Codeine Phos* (ROBITUSSIN AC*) 118 Ml Liquid 5 ML ORAL Q6H PRN for For Cough, #190 ML 0 Refills Prov: Avelino Encarnacion M.D. 01/04/18 Lidocaine HCl 2% Viscous (Lidocaine HCl 2% Viscous) 100 Ml Solution 10 ML ORAL QID PRN for For Pain, #90 ML Prov: Avelino Encarnacion M.D. 01/04/18 Avelino Encarnacion M.D. Jan 04, 2018 05:26
[2018-01-04] MEDS ORDERED: Lidocaine 2% Visc 15ml soln ORAL ONE (05:30)
[2018-01-04] MEDS ORDERED: LIDOCAINE VISC100 ML ORAL (05:41)
[2018-01-04] MEDS ORDERED: GUAIFENESIN-CO118 M1 ORAL (05:41)
[2018-01-04 05:47] VITALS: BP 140/85
== END 2018-01-04 05:47 | disposition home or self-care (01) ==
LOC: EMR 05:44
DX: J02.9 Acute pharyngitis, unspecified (principal); Z85.41 Personal history of malignant neoplasm of cervix uteri
CPT/HCPCS: 99284

== ENCOUNTER 2018-01-16 22:10 | Emergency (ER) | payer SELFPAY ==
[~2018-01-16] VITALS: Ht 162.6 cm; Wt 98.4 kg
[~2018-01-16 22:10] MED LIST changes: +GUAIFENESIN-CO118 M1 ORAL; +LIDOCAINE VISC100 ML ORAL
[2018-01-16 22:30] VITALS: BP 116/76
[2018-01-16] MEDS ORDERED: AMOXICILLIN500 MG ORAL (22:50)
[2018-01-16 23:00] VITALS: BP 116/76
--- NOTE | 2018-01-17 05:21 | Emergency Room Report ---
History of Present Illness General Chief Complaint: Sore Throat Source: Patient Present Illness HPI Patient is a 22-year-old female who presented after increased left-sided earache as well as increased sore throat. Patient had the onset of symptoms approximately one day. She denied any fever. She had not been vomiting. The patient denies any cough. She denied nasal congestion.Patient states that she is not . Allergies: Coded Allergies: NITROFURANTOIN (Verified Allergy, Unknown, 01/16/18) Patient History Past Medical History: see triage record Last Menstrual Period: january 12 Now: No Reviewed Nursing Documentation: PMH: Agreed; PSxH: Agreed Nursing Documentation-PMH Past Medical History: No History, Except For Hx Asthma: No - Tonsilitis Hx Cancer: Yes - Cervical Cancer (LEEP procedure) Hx Gastrointestinal Problems: No - Hx Neurological Problems: No - Left knee surgery Review of Systems All Other Systems: negative except mentioned in HPI Physical Exam Vital Signs Date Time Temp Pulse Resp B/P (MAP) Pulse Ox O2 Delivery O2 Flow Rate FiO2 01/16/18 22:24 98.1 91 16 116/76 99 Room Air 98.1 General Appearance: well appearing, no apparent distress, alert, GCS 15 Head: normocephalic, atraumatic ENT: hearing grossly normal, normal voice, uvula midline, pharyngeal erythema Neck: full range of motion, supple, other - lymphadenopathy Respiratory: no respiratory distress, speaking full sentences Cardiovascular #1: normal peripheral pulses, regular rate, rhythm, no edema Gastrointestinal: normal inspection, normal bowel sounds Musculoskeletal: normal inspection, back normal, digits/nails normal, no calf tenderness Neurologic: normal gait Psychiatric: mood/affect normal Skin: no rash Medical Decision Making Diagnostic Impression: Primary Impression: Tonsillitis ER Course This presented for sore throat. Differential diagnosis included but was not limited to meningitis, exudative tonsillitis, retropharyngeal abscess, epiglottitis, strep pharyngitis. Patient has a benign exam and does not appear to require any further imaging or laboratory testing at this time. The patient was given Viscous Lidocaine as well as ibuprofen for pain. Patient was given prescription for amoxicillin for tonsillitis. Last Vital Signs Date Time Temp Pulse Resp B/P (MAP) Pulse Ox O2 Delivery O2 Flow Rate FiO2 01/16/18 23:00 98.1 16 116/76 99 Room Air 98.1 01/16/18 22:24 91 Status: improved Disposition: HOME, SELF-CARE Condition: Stable Scripts Amoxicillin* (AMOXIL*) 500 Mg Capsule 500 MG ORAL THREE TIMES A DAY, #21 CAP Prov: Ankit Sullivan 01/16/18 Referrals: AMANDA LEZAMA M.D. (PCP) Patient Instructions: Tonsillitis Ankit Sullivan January 17, 2018 05:21
== END 2018-01-16 23:00 | disposition home or self-care (01) ==
LOC: EMR 22:45
DX: J03.90 Acute tonsillitis, unspecified (principal)
CPT/HCPCS: 99283

== ENCOUNTER 2018-06-03 21:38 | Emergency (ER) | payer OTHER ==
[~2018-06-03] VITALS: Ht 165.1 cm; Wt 81.6 kg
[~2018-06-03 21:38] MED LIST changes: +AMOXICILLIN500 MG ORAL
[2018-06-03] MEDS ORDERED: Lidocaine 2% Visc 15ml soln ORAL ONE (22:00)
[2018-06-03 22:11] LABS: BASOPHILS % (AUTO) 0.9 % (0.0-2.0); EOSINOPHILS % (AUTO) 0.4 % (0.0-3.0); HEMATOCRIT 44.9 % (37.0-47.0); HEMOGLOBIN 14.4 G/DL (12.0-16.0); LYMPHOCYTES % (AUTO) 13.4 % (20.0-45.0); MEAN CORPUSCULAR VOLUME 82 FL (80-99); MONOCYTES % (AUTO) 5.3 % (1.0-10.0); NEUTROPHILS % (AUTO) 80.1 % (45.0-75.0); PLATELET COUNT 264 K/UL (150-450); RED BLOOD COUNT 5.51 M/UL (4.20-5.40); RED CELL DISTRIBUTION WIDTH 12.3 % (11.6-14.8); WHITE BLOOD COUNT 12.5 K/UL (4.8-10.8)
[2018-06-03 22:16] VITALS: BP 122/87
[2018-06-03 22:26] LABS: ANION GAP 6 mmol/L (5-15); BLOOD UREA NITROGEN 10 mg/dL (7-18); CALCIUM 9.4 MG/DL (8.5-10.1); CARBON DIOXIDE 28 MMOL/L (21-32); CHLORIDE 102 MMOL/L (98-107); CREATININE 0.8 MG/DL (0.55-1.30); POTASSIUM 3.6 MMOL/L (3.5-5.1); SODIUM 136 MMOL/L (136-145)
[2018-06-03] MEDS ORDERED: cefTRIAXone 1 GM in NS 55 ML IVPB ONE (22:30)
[2018-06-03 22:32] LABS: ALANINE AMINOTRANSFERASE 48 U/L (12-78); ALBUMIN 4.2 G/DL (3.4-5.0); ALBUMIN/GLOBULIN RATIO 0.8 (1.0-2.7); ALKALINE PHOSPHATASE 90 U/L (46-116); ASPARTATE AMINO TRANSFERASE 26 U/L (15-37); BILIRUBIN,TOTAL 0.4 MG/DL (0.2-1.0)
[2018-06-03] MEDS ORDERED: Acetaminophen 500mg (ES) tab ORAL ONE (23:30)
--- NOTE | 2018-06-03 23:53 | Emergency Room Report ---
History of Present Illness General Chief Complaint: Abdominal Pain Source: Patient Present Illness HPI Patient is a 23-year-old female presented after increased sore throat as well as abdominal pain. Patient reports having increased cramping. She reports having vaginal bleeding which is increased in nature. Patient had prior history of LEEP procedure. She reports having a sore throat for several days and had become increasingly hoarse. She denies any recent anticoagulant use. She denies other surgeries. She denies being . Allergies: Coded Allergies: NITROFURANTOIN (Verified Allergy, Unknown, 01/16/18) Patient History Past Medical History: see triage record Last Menstrual Period: now Reviewed Nursing Documentation: PMH: Agreed; PSxH: Agreed Nursing Documentation-PMH Past Medical History: No History, Except For Hx Asthma: No - Tonsilitis Hx Cancer: Yes - Cervical Cancer (LEEP procedure) Hx Gastrointestinal Problems: No - Hx Neurological Problems: No - Left knee surgery Review of Systems All Other Systems: negative except mentioned in HPI Physical Exam Vital Signs Date Time Temp Pulse Resp B/P (MAP) Pulse Ox O2 Delivery O2 Flow Rate FiO2 06/03/18 21:41 97.9 78 16 132/91 99 Room Air 97.9 Sp02 EP Interpretation: reviewed, normal General Appearance: normal inspection, well appearing, no apparent distress, alert, GCS 15 Head: atraumatic ENT: hearing grossly normal, uvula midline, tonsillar swelling, tonsillar exudate Neck: normal inspection, full range of motion, supple, no bony tend Respiratory: normal inspection, lungs clear, normal breath sounds, no respiratory distress, no retraction, no wheezing Cardiovascular #1: regular rate, rhythm, no edema Gastrointestinal: normal inspection, normal bowel sounds, non tender, soft, no guarding, no hernia Genitourinary: no CVA tenderness Musculoskeletal: normal inspection, back normal, normal range of motion Neurologic: normal inspection, alert, oriented x3, responsive, produce service team member III-XII nml as tested, speech normal Psychiatric: normal inspection, judgement/insight normal, mood/affect normal Skin: normal inspection, normal color, no rash Medical Decision Making Diagnostic Impression: Primary Impression: Tonsillitis Additional Impression: Vaginal bleeding ER Course Patient presented for abdominal pain. Differential diagnoses included ischemic bowel, appendicitis, perforated viscus, abdominal aortic aneurysm, inferior myocardial infarction, viral gastroenteritis. Because of complexity of patient 's case laboratory testing and imaging studies were ordered.Laboratory testing was Patient hgb was normal. The patient was noted to have some elevation of her white blood count. The patient is advised follow-up with her ENGLISH LANGUAGE LEARNER TUTOR. This medical record is generated with [employer] rn chemical dependency software. There may be some rn chemical dependency discrepancies related to use of this software Labs Test 06/03/18 22:04 White Blood Count 12.5 K/UL (4.8-10.8) Red Blood Count 5.51 M/UL (4.20-5.40) Hemoglobin 14.4 G/DL (12.0-16.0) Hematocrit 44.9 % (37.0-47.0) Mean Corpuscular Volume 82 FL (80-99) Mean Corpuscular Hemoglobin 26.1 PG (27.0-31.0) Mean Corpuscular Hemoglobin Concent 32.0 G/DL (32.0-36.0) Red Cell Distribution Width 12.3 % (11.6-14.8) Platelet Count 264 K/UL (150-450) Mean Platelet Volume 7.8 FL (6.5-10.1) Neutrophils (%) (Auto) 80.1 % (45.0-75.0) Lymphocytes (%) (Auto) 13.4 % (20.0-45.0) Monocytes (%) (Auto) 5.3 % (1.0-10.0) Eosinophils (%) (Auto) 0.4 % (0.0-3.0) Basophils (%) (Auto) 0.9 % (0.0-2.0) Prothrombin Time 10.7 SEC (9.30-11.50) Prothromb Time International Ratio 1.0 (0.9-1.1) Activated Partial Thromboplast Time 32 SEC (23-33) Sodium Level 136 MMOL/L (136-145) Potassium Level 3.6 MMOL/L (3.5-5.1) Chloride Level 102 MMOL/L (98-107) Carbon Dioxide Level 28 MMOL/L (21-32) Anion Gap 6 mmol/L (5-15) Blood Urea Nitrogen 10 mg/dL (7-18) Creatinine 0.8 MG/DL (0.55-1.30) Estimat Glomerular Filtration Rate > 60 mL/min (>60) Glucose Level 102 MG/DL (74-106) Calcium Level 9.4 MG/DL (8.5-10.1) Total Bilirubin 0.4 MG/DL (0.2-1.0) Aspartate Amino Transf (AST/SGOT) 26 U/L (15-37) Alanine Aminotransferase (ALT/SGPT) 48 U/L (12-78) Alkaline Phosphatase 90 U/L (46-116) Total Protein 9.3 G/DL (6.4-8.2) Albumin 4.2 G/DL (3.4-5.0) Globulin 5.1 g/dL Albumin/Globulin Ratio 0.8 (1.0-2.7) Last Vital Signs Date Time Temp Pulse Resp B/P (MAP) Pulse Ox O2 Delivery O2 Flow Rate FiO2 06/03/18 22:16 97.9 76 21 122/87 99 Room Air 97.9 Status: improved Disposition: HOME, SELF-CARE Condition: Stable Scripts Lidocaine HCl 2% Viscous (Lidocaine HCl 2% Viscous) 100 Ml Solution 15 ML ORAL QID, #120 ML Prov: Ankit Sullivan MD 06/04/18 Ibuprofen* (MOTRIN*) 600 Mg Tablet 600 MG ORAL Q8H PRN for For Pain, #30 TAB 0 Refills Prov: Ankit Sullivan MD 06/04/18 Cephalexin* (KEFLEX*) 500 Mg Capsule 500 MG ORAL EVERY 12 HOURS, #28 CAP 0 Refills Prov: Ankit Sullivan MD 06/04/18 Referrals: [facility],REFERRING (PCP) Ankit Sullivan MD Jun 03, 2018 23:53
[2018-06-04 00:15] LABS: APPEARANCE,URINE CLEAR; BILIRUBIN, URINE NEGATIVE (NEGATIVE); GLUCOSE, URINE (UA) NEGATIVE (NEGATIVE); KETONES,URINE 1+ (NEGATIVE); LEUKOCYTE ESTERASE ,URINE 1+ (NEGATIVE); NITRITE,URINE NEGATIVE (NEGATIVE); PH,URINE 6 (4.5-8.0); PROTEIN,URINE 1+ (NEGATIVE); UROBILINOGEN,URINE NORMAL MG/DL (0.0-1.0)
[2018-06-04 00:41] LABS: COLOR,URINE YELLOW
[2018-06-04] MEDS ORDERED: Morphine Sulfate 2mg/ml Inj IVP ONE (00:45)
[2018-06-04] MEDS ORDERED: Ketorolac 30mg Inj IV ONE (00:45)
[2018-06-04] MEDS ORDERED: Sodium Chloride 500ML 500 ML IV ONE (00:45)
[2018-06-04] MEDS ORDERED: IBUPROFEN600 MG ORAL (00:49)
[2018-06-04] MEDS ORDERED: LIDOCAINE VISC100 ML ORAL (00:49)
[2018-06-04] MEDS ORDERED: CEPHALEXIN500 MG ORAL (00:49)
[2018-06-04 01:20] VITALS: BP 125/90
[2018-06-04 01:21] VITALS: BP 125/90
== END 2018-06-04 01:23 | disposition home or self-care (01) ==
LOC: EMR 21:51
DX: J03.90 Acute tonsillitis, unspecified (principal); N92.0 Excessive and frequent menstruation with regular cycle; R10.9 Unspecified abdominal pain; Z85.41 Personal history of malignant neoplasm of cervix uteri; Z88.8 Allergy status to other drugs, medicaments and biological substances; R11.11 Vomiting without nausea
CPT/HCPCS: 36415; 80053; 81001; 81025; 85025; 85610; 85730; 96365; 96375; 99284; J0696; J1885; J2270; J7040

== ENCOUNTER 2018-06-22 16:58 | Emergency (ER) | payer OTHER ==
[~2018-06-22] VITALS: Ht 162.6 cm; Wt 86.2 kg
[~2018-06-22 16:58] MED LIST changes: +CEPHALEXIN500 MG ORAL
--- NOTE | 2018-06-22 17:18 | Emergency Room Report ---
History of Present Illness General Chief Complaint: Female Urogenital Problems Source: Patient, Medical Record Present Illness HPI 23-year-old female patient presents ER complaining of pain with urination for the past 2 weeks. Patient states that she was previously seen at [facility] and prescribed antibiotics, states that after taking the antibiotics for 4 days she lost the rest of her prescription. Reports symptoms mildly improved but still present since that time. Denies fever, chest pain, shortness of breath, abdominal pain, flank pain, vomiting. Reports mild pain with urination. Denies vaginal discharge. Reports last menstrual period normal. Allergies: Coded Allergies: NITROFURANTOIN (Verified Allergy, Unknown, 01/16/18) Patient History Past Medical History: see triage record Last Menstrual Period: 06/02/18 Reviewed Nursing Documentation: PMH: Agreed; PSxH: Agreed Nursing Documentation-PMH Past Medical History: No History, Except For Hx Asthma: No - Tonsilitis Hx Cancer: Yes - Cervical Cancer (LEEP procedure) Hx Gastrointestinal Problems: No - Hx Neurological Problems: No - Left knee surgery Review of Systems All Other Systems: negative except mentioned in HPI Physical Exam Vital Signs Date Time Temp Pulse Resp B/P (MAP) Pulse Ox O2 Delivery O2 Flow Rate FiO2 06/22/18 17:07 98.5 80 18 113/74 98 Room Air 98.4 Sp02 EP Interpretation: reviewed, normal General Appearance: well appearing, no apparent distress, alert, GCS 15, non- toxic Head: normocephalic, atraumatic Eyes: bilateral eye normal inspection, bilateral eye PERRL ENT: hearing grossly normal, normal pharynx, no angioedema, normal voice, uvula midline, moist mucus membranes Neck: full range of motion Respiratory: lungs clear, normal breath sounds, no rhonchi, no respiratory distress, no accessory muscle use, no wheezing, speaking full sentences Cardiovascular #1: regular rate, rhythm, no edema Gastrointestinal: non tender, soft, no mass, non-distended, no guarding, no rebound Genitourinary: no CVA tenderness Musculoskeletal: back normal, digits/nails normal, gait/station normal, normal range of motion, non-tender Neurologic: alert, oriented x3, responsive, motor strength/tone normal, sensory intact Psychiatric: mood/affect normal Skin: no rash Lymphatic: no adenopathy Medical Decision Making PA Attestation Dr. Valencia is my supervising Physician whom patient management has been discussed with. Diagnostic Impression: Primary Impression: Dysuria ER Course Pt presents to ED c/o urinary symptoms. DDX considered but are not limited to cystitis, pyelonephritis, STI, vaginitis, . No abdominal tenderness to palpation, negative drivematic machine operator, negative Melgoza, negative Rovsing, low suspicion for cholecystitis or appendicitis, does not require imaging or labs at this time. VITAL SIGNS are WNL, patient is afebrile. Ordered UA. ER COURSE reviewed previous chart, patient was being treated for tonsillitis, was not being treated for UTI. Patient denies sore throat symptoms. On physical exam, no pharyngeal erythema or tonsillar exudates noted. UA results show no signs of infection, do not indicate UTI, does not require abx. urine negative. provide patient with copies of lab results, instructed to follow-up with primary care provider to discuss results. If concern for STI, followup with STI clinic for testing and treatment. Denies STI concern. follow-up with primary care provider to discuss further treatment and referral to [facility] and specialist as needed. Patient is resting comfortably in chair, nontoxic appearing, in no acute distress. Patient states they feel better and is ready to go home. DISCHARGE -Rx provided for Phenazopyridine for pain. Patient is stable for discharge. Patient resting comfortably, in no acute distress, nontoxic appearing, talking without difficulty. Will provide with patient care instructions and any necessary prescriptions. Patient understands and agrees to treatment plan. Patient encouraged to drink plenty of fluids. Patient to take medication as instructed. Care plan and follow-up instructions provided. Patient questions asked and answered. Reports understanding and agreement to treatment plan. Patient instructed to follow-up with primary care provider in 3 - 5 days. ER precautions given. Patient instructed to return to ER immediately for any new or worsening of symptoms. Including but not limited to fever, abdominal pain , intractable vomiting. - Please note that this Emergency Department Report was dictated using Artillerymedical billing clerk technology software, occasionally this can lead to erroneous entry secondary to interpretation by the dictation equipment. Labs Test 06/22/18 17:20 Urine Color Pale yellow Urine Appearance Clear Urine pH 7 (4.5-8.0) Urine Specific [place] 1.005 (1.005-1.035) Urine Protein Negative (NEGATIVE) Urine Glucose (UA) Negative (NEGATIVE) Urine Ketones Negative (NEGATIVE) Urine Blood Negative (NEGATIVE) Urine Nitrite Negative (NEGATIVE) Urine Bilirubin Negative (NEGATIVE) Urine Urobilinogen Normal MG/DL (0.0-1.0) Urine Leukocyte Esterase 3+ (NEGATIVE) Urine RBC 0-2 /HPF (0 - 2) Urine WBC 2-4 /HPF (0 - 2) Urine Squamous Epithelial Cells Few /LPF (NONE/OCC) Urine Bacteria Few /HPF (NONE) Urine HCG, Qualitative Negative (NEGATIVE) Last Vital Signs Date Time Temp Pulse Resp B/P (MAP) Pulse Ox O2 Delivery O2 Flow Rate FiO2 06/22/18 17:07 98.5 80 18 113/74 98 Room Air 98.4 Disposition: HOME, SELF-CARE Condition: Stable Scripts Phenazopyridine Hcl* (PYRIDIUM*) 100 Mg Tablet 100 MG ORAL THREE TIMES A DAY for 3 Days, #9 TAB Prov: Jamarcus Still 06/22/18 Patient Instructions: Dysuria Additional Instructions: Followup with primary care provider and followup with and./or OBGYN. Drink plenty of fluids. Take medications as directed. Pyridium has SE of turning urine orange. Patient questions asked and answered. ER precautions given, patient instructed to return to ER immediately for any new or worsening of symptoms. Jamarcus Still Jun 22, 2018 17:17
[2018-06-22 17:55] LABS: APPEARANCE,URINE CLEAR; BILIRUBIN, URINE NEGATIVE (NEGATIVE); COLOR,URINE PALE YELLOW; GLUCOSE, URINE (UA) NEGATIVE (NEGATIVE); KETONES,URINE NEGATIVE (NEGATIVE); LEUKOCYTE ESTERASE ,URINE 3+ (NEGATIVE); NITRITE,URINE NEGATIVE (NEGATIVE); PH,URINE 7 (4.5-8.0); PROTEIN,URINE NEGATIVE (NEGATIVE); UROBILINOGEN,URINE NORMAL MG/DL (0.0-1.0)
[2018-06-22] MEDS ORDERED: PHENAZOPYRIDIN100 MG ORAL (18:26)
[2018-06-22 18:36] VITALS: BP 113/74
== END 2018-06-22 18:38 | disposition home or self-care (01) ==
LOC: EMR 18:17
DX: R30.0 Dysuria (principal)
CPT/HCPCS: 81003; 81025; 99283

== ENCOUNTER 2018-08-07 12:57 | Emergency (ER) | payer OTHER ==
[~2018-08-07] VITALS: Ht 162.6 cm; Wt 99.8 kg
[~2018-08-07 12:57] MED LIST changes: +PHENAZOPYRIDIN100 MG ORAL
[2018-08-07] MEDS ORDERED: ZOFRAN4 M1 ORAL (13:57)
--- NOTE | 2018-08-07 13:59 | Emergency Room Report ---
History of Present Illness General Chief Complaint: Nausea, Vomiting, and Diarrhea Source: Patient Present Illness HPI Patient present with complaints of nausea Symptoms started 4 days ago Patient had some body ache initially however that has resolved patient also complained of softer stool than usual yesterday after eating she had again some more loose stool Very minimal epigastric cramping Denies any fevers denies any chest pain or shortness of breath denies any recent travel as any rash Allergies: Coded Allergies: NITROFURANTOIN (Verified Allergy, Unknown, 01/16/18) Patient History Past Medical History: see triage record Pertinent Family History: none Last Menstrual Period: 07/11/18 Now: No : 1 Para: 0 Reviewed Nursing Documentation: PMH: Agreed; PSxH: Agreed Nursing Documentation-PMH Past Medical History: No History, Except For Hx Asthma: No - Tonsilitis Hx Cancer: Yes - Cervical Cancer (LEEP procedure) Hx Gastrointestinal Problems: No - Hx Neurological Problems: No - Left knee surgery Review of Systems All Other Systems: negative except mentioned in HPI Physical Exam Vital Signs Date Time Temp Pulse Resp B/P (MAP) Pulse Ox O2 Delivery O2 Flow Rate FiO2 08/07/18 13:38 98.8 62 18 134/90 100 Room Air Sp02 EP Interpretation: reviewed, normal General Appearance: well appearing, no apparent distress Head: normocephalic, atraumatic Eyes: bilateral eye PERRL, bilateral eye EOMI ENT: hearing grossly normal, normal pharynx, TMs + canals normal, uvula midline Neck: full range of motion, supple, no meningismus, no bony tend Respiratory: lungs clear, normal breath sounds, no rhonchi, no respiratory distress, no retraction, no accessory muscle use Cardiovascular #1: normal peripheral pulses, regular rate, rhythm, no edema, no gallop, no JVD, no murmur Gastrointestinal: normal bowel sounds, non tender, soft, no mass, no organomegaly, non-distended, no guarding, no hernia, no pulsatile mass, no rebound Genitourinary: no CVA tenderness Musculoskeletal: normal inspection Neurologic: oriented x3, responsive, tavern operator III-XII nml as tested, motor strength/ tone normal, sensory intact Psychiatric: mood/affect normal Skin: normal color, no rash, warm/dry, palpation normal Lymphatic: normal inspection, no adenopathy Medical Decision Making Diagnostic Impression: Primary Impression: Nausea, vomiting, and diarrhea ER Course With the patient's history and examination, multiple differentials considered, including but not limited to , ectopic , ovarian torsion, gastritis, cholecystitis, pancreatitis, appendicitis Patient's clinical history and exam however is consistent with enteritis type pathology Patient's abdomen is soft and benign I did not feel initial emergent blood work is required and patient will have initial conservative outpatient trial Last Vital Signs Date Time Temp Pulse Resp B/P (MAP) Pulse Ox O2 Delivery O2 Flow Rate FiO2 08/07/18 13:38 98.8 62 18 134/90 100 Room Air Status: improved Disposition: HOME, SELF-CARE Condition: Stable Scripts Ondansetron (Zofran) 4 Mg Tablet 4 MG ORAL Q6H PRN for Nausea & Vomiting, #12 TAB Prov: Teto Gong DO 08/07/18 Patient Instructions: Nausea and Vomiting, Adult, Diarrhea, Adult, [id number] Additional Instructions: Patient is provided with the discharge instructions notified to follow up with primary doctor in the next 2-3 days otherwise return to the er with any worsening symptoms. Please note that this report is being documented using byyd technology. This can lead to erroneous entry secondary to incorrect interpretation by the dictating instrument. Teto Gong DO Aug 07, 2018 13:59
[2018-08-07 14:04] VITALS: BP 134/90
== END 2018-08-07 14:06 | disposition home or self-care (01) ==
LOC: EMR 13:55
DX: R11.2 Nausea with vomiting, unspecified (principal); R19.7 Diarrhea, unspecified; Z85.41 Personal history of malignant neoplasm of cervix uteri; Z98.890 Other specified postprocedural states
CPT/HCPCS: 99282

== ENCOUNTER 2018-10-16 02:18 | Emergency (ER) | payer OTHER ==
[~2018-10-16] VITALS: Ht 162.6 cm; Wt 95.3 kg
[~2018-10-16 02:18] MED LIST changes: +ZOFRAN4 M1 ORAL
[2018-10-16 02:32] VITALS: BP 123/83
--- NOTE | 2018-10-16 02:34 | NUR ---
ER Nurse Note: Pt came from home c/o sore throat and cough since 10/10. Pt stated pain 4/10 pain when coughing, difficulty swollowing fluids. Lung sounds clear in all lobes; sinus congestions with sneeze. Pt a&ox4, VSS, no signs of distress. Will continue to montior.
[2018-10-16] MEDS ORDERED: Lidocaine 2% Visc 15ml soln ORAL ONE (02:45)
[2018-10-16] MEDS ORDERED: AMOXICILLIN500 MG ORAL (02:57)
[2018-10-16] MEDS ORDERED: LIDOCAINE VISC100 ML ORAL (02:57)
[2018-10-16] MEDS ORDERED: ALBUTEROL SULF8.5 GM INH (02:57)
[2018-10-16 03:06] VITALS: BP 123/83
--- NOTE | 2018-10-16 03:06 | NUR ---
ER Nurse Note: Pt seen, treated, medically cleared for discharge by ERMD. Discharge instructions and prescriptions given with repeat verbalization by pt. Instructed pt to follow up with primary care physican within one week. Pt a&ox4, VSS, no signs of distress. ID band removed; left with steady gait via own transportation.
--- NOTE | 2018-10-16 03:16 | Emergency Room Report ---
History of Present Illness General Chief Complaint: Sore Throat Present Illness HPI She is a 23-year-old female presented after increased sore throat and cough. Patient gradual onset of symptoms for the past 4 days. She reports having prior history of tonsillitis. She denies any history of asthma. She not been having fever patient not been vomiting. She reports having increased painful swallowing. She denies any diarrhea. Cough is nonproductive. She reports having a flu shot last year. Allergies: Coded Allergies: NITROFURANTOIN (Verified Allergy, Unknown, 01/16/18) Patient History Past Medical History: see triage record Last Menstrual Period: 10/03/2017 Now: No Reviewed Nursing Documentation: PMH: Agreed; PSxH: Agreed Nursing Documentation-PMH Hx Asthma: No - Tonsilitis Hx Cancer: Yes - Cervical Cancer (LEEP procedure) Hx Gastrointestinal Problems: No - Hx Neurological Problems: No - Left knee surgery Review of Systems All Other Systems: negative except mentioned in HPI Physical Exam Vital Signs Date Time Temp Pulse Resp B/P (MAP) Pulse Ox O2 Delivery O2 Flow Rate FiO2 10/16/18 02:23 98.6 95 16 123/83 98 Room Air Sp02 EP Interpretation: reviewed, normal General Appearance: normal inspection, well appearing, no apparent distress, alert, GCS 15 Head: atraumatic ENT: normal ENT inspection, hearing grossly normal, normal voice, tonsillar swelling, tonsillar exudate Neck: normal inspection, full range of motion, supple, no bony tend Respiratory: normal inspection, lungs clear, normal breath sounds, no respiratory distress, no retraction, no wheezing Cardiovascular #1: regular rate, rhythm, no edema Gastrointestinal: normal inspection, normal bowel sounds, non tender, soft, no guarding, no hernia Genitourinary: no CVA tenderness Musculoskeletal: normal inspection, back normal, normal range of motion Neurologic: normal inspection, alert, oriented x3, responsive, environmental engineering manager III-XII nml as tested, speech normal Psychiatric: normal inspection, judgement/insight normal, mood/affect normal Skin: normal inspection, normal color, no rash Medical Decision Making Diagnostic Impression: Primary Impression: Tonsillitis ER Course Presented for sore throat. Differential diagnosis included but was not limited to meningitis, exudative tonsillitis, retropharyngeal abscess, epiglottitis, strep pharyngitis. Patient has a benign exam and does not appear to require any further imaging or laboratory testing at this time. Patient is noted to have appears to be an exudative pharyngitis. Patient will be followed with primary care physician in the next 2 days. She is given medications for symptomatic treatment as well as a prescription for amoxicillin. She is advised to return for any worsening of condition or other difficulty breathing. Last Vital Signs Date Time Temp Pulse Resp B/P (MAP) Pulse Ox O2 Delivery O2 Flow Rate FiO2 10/16/18 03:06 98.6 78 16 123/83 98 Room Air Status: improved Disposition: HOME, SELF-CARE Condition: Stable Scripts Amoxicillin* (AMOXIL*) 500 Mg Capsule 500 MG ORAL EVERY 8 HOURS, #30 CAP Prov: Ankit Sullivan MD 10/16/18 Albuterol Sulfate* (ALBUTEROL SULFATE MDI*) 8.5 Gm Hfa.aer.ad 2 PUFF INH Q4H, #1 INH 0 Refills Prov: Ankit Sullivan MD 10/16/18 Lidocaine HCl 2% Viscous (Lidocaine HCl 2% Viscous) 100 Ml Solution 15 ML ORAL QID, #120 ML Prov: Ankit Sullivan MD 10/16/18 Referrals: [facility],REFERRING (PCP) Patient Instructions: Tonsillitis Ankit Sullivan MD Oct 16, 2018 03:16
== END 2018-10-16 03:05 | disposition home or self-care (01) ==
LOC: EMR 03:00
DX: J03.90 Acute tonsillitis, unspecified (principal); Z85.41 Personal history of malignant neoplasm of cervix uteri
CPT/HCPCS: 86710; 99283

== ENCOUNTER 2019-03-21 22:43 | Emergency (ER) | payer OTHER ==
[~2019-03-21] VITALS: Ht 162.6 cm; Wt 81.6 kg
[2019-03-21 22:57] VITALS: BP 121/78
--- NOTE | 2019-03-21 23:02 | NUR ---
ED Nurse Note: Patient walked in to ER c/o right eye pain, yellow discharge since yestrday. AAO x4, VSS at this time.
[2019-03-21] MEDS ORDERED: POLYTRIM OP SOL10 ML OPHTHALM (23:21)
--- NOTE | 2019-03-21 23:22 | Emergency Room Report ---
History of Present Illness General Chief Complaint: Eye Problems Source: Patient Present Illness [facility] This is a 23-year-old female with no past medical history. She presents with chief complaint of right eye irritation. Onset this morning. Itchy and watery. No foreign body. No discharge. Does have tearing. No cough or congestion. Allergies: Coded Allergies: NITROFURANTOIN (Verified Allergy, Unknown, 01/16/18) Patient History Past Medical History: see triage record, old chart reviewed Past Surgical History: none Pertinent Family History: none Social History: Denies: smoking Last Menstrual Period: 03/06 Now: No Immunizations: UTD Reviewed Nursing Documentation: PMH: Agreed; PSxH: Agreed Nursing Documentation-PMH Hx Asthma: No - Tonsilitis Hx Cancer: Yes - Cervical Cancer (LEEP procedure) Hx Gastrointestinal Problems: No - Hx Neurological Problems: No - Left knee surgery Review of Systems Eye: Reports: eye pain; Denies: blurred vision ENT: Denies: ear pain, nose congestion, throat swelling Respiratory: Denies: cough, shortness of breath Cardiovascular: Denies: chest pain, palpitations Gastrointestinal: Denies: abdominal pain, diarrhea, nausea, vomiting Musculoskeletal: Denies: back pain, joint pain Skin: Denies: rash Neurological: Denies: headache, numbness Endocrine: Denies: increased thirst, increased urine Hematologic/Lymphatic: Denies: easy bruising All Other Systems: negative except mentioned in HPI Physical Exam Vital Signs Date Time Temp Pulse Resp B/P (MAP) Pulse Ox O2 Delivery O2 Flow Rate FiO2 03/21/19 22:46 98.6 65 16 121/78 (92) 98 Room Air Vitals normal Sp02 EP Interpretation: reviewed, normal General Appearance: well appearing, no apparent distress, alert Head: normocephalic, atraumatic Eyes: right eye other - Conjunctiva injected; bilateral eye PERRL, bilateral eye EOMI ENT: hearing grossly normal, normal pharynx Neck: full range of motion, supple, no meningismus Respiratory: chest non-tender, lungs clear, normal breath sounds Cardiovascular #1: regular rate, rhythm, no murmur Gastrointestinal: normal bowel sounds, non tender, no mass, no organomegaly, no bruit, non-distended Musculoskeletal: back normal, gait/station normal, normal range of motion Psychiatric: mood/affect normal Medical Decision Making Diagnostic Impression: Primary Impression: Conjunctivitis Qualified Codes: H10.31 - Unspecified acute conjunctivitis, right eye ER Course Presents with right conjunctivitis. Most likely viral but will go ahead and treat with an spotting drop. No foreign body. No globe rupture. No corneal abrasion. Last Vital Signs Date Time Temp Pulse Resp B/P (MAP) Pulse Ox O2 Delivery O2 Flow Rate FiO2 03/21/19 22:57 98.6 16 121/78 98 Room Air 03/21/19 22:46 65 Status: unchanged Disposition: HOME, SELF-CARE Condition: Stable Scripts Polymyxin/Trimethoprim (Polytrim Eye Drops) 10 Ml Drops 2 DROP OPHTHALM THREE TIMES A DAY, #1 EA Instill in affected eye for 7 days Prov: Darian Garcia MD 03/21/19 Patient Instructions: Bacterial Conjunctivitis, [id number] Additional Instructions: Follow-up with your doctor in 7 days. Treat both eyes. Return if worse. Darian Garcia MD Mar 21, 2019 23:22
[2019-03-21 23:24] VITALS: BP 121/78
--- NOTE | 2019-03-21 23:25 | NUR ---
ED Nurse Note: Pt cleared by health care Provider for discharge. DC instructions/prescription was given and explained to pt and verbalized understanding of teachings. All medical deviecs such as ID band removed. Pt is AAO x4, ambulatory and left with all personal belongings.
== END 2019-03-21 23:32 | disposition home or self-care (01) ==
LOC: EMR 23:21
DX: H10.31 Unspecified acute conjunctivitis, right eye (principal); Z85.41 Personal history of malignant neoplasm of cervix uteri; Z88.8 Allergy status to other drugs, medicaments and biological substances
CPT/HCPCS: 99282

== ENCOUNTER 2019-03-25 23:30 | Emergency (ER) | payer OTHER ==
[~2019-03-25] VITALS: Ht 162.6 cm; Wt 81.6 kg
[2019-03-25 23:35] VITALS: BP 123/84
--- NOTE | 2019-03-25 23:47 | NUR ---
ED Nurse Note: PT CAME TO ED FROM HOME, C/O SWELLING AND REDNESS IN R EYE AFTER USING RX EYE DROPS FOR PREVIOUS PINK EYE INFECTION. PT IS A&OX4 VSS
[2019-03-26] MEDS ORDERED: OCUFLOX5 ML OP (00:12)
--- NOTE | 2019-03-26 00:12 | Emergency Room Report ---
History of Present Illness General Chief Complaint: Allergic Reaction Source: Patient Present Illness HPI This is a 23-year-old female whom I saw last week. She presents with conjunctivitis and a prescribed Polytrim eyedrop. She presents with allergic reaction to it. She said whenever she use the eyedrop her symptoms get worse. More swelling and redness. No fever chills but no nausea no vomiting. Denies any other complaint. No blurry vision. Allergies: Coded Allergies: NITROFURANTOIN (Verified Allergy, Unknown, 01/16/18) Patient History Past Medical History: see triage record, old chart reviewed Past Surgical History: none Pertinent Family History: none Social History: Denies: smoking Last Menstrual Period: 03/24/19 Now: No Immunizations: other Reviewed Nursing Documentation: PMH: Agreed; PSxH: Agreed Nursing Documentation-PMH Hx Asthma: No - Tonsilitis Hx Cancer: Yes - Cervical Cancer (LEEP procedure) Hx Gastrointestinal Problems: No - Hx Neurological Problems: No - Left knee surgery Review of Systems Eye: Reports: eye pain, discharge; Denies: blurred vision ENT: Denies: ear pain, nose congestion, throat swelling Respiratory: Denies: cough, shortness of breath Cardiovascular: Denies: chest pain, palpitations Gastrointestinal: Denies: abdominal pain, diarrhea, nausea, vomiting Musculoskeletal: Denies: back pain, joint pain Skin: Denies: rash Neurological: Denies: headache, numbness Endocrine: Denies: increased thirst, increased urine Hematologic/Lymphatic: Denies: easy bruising All Other Systems: negative except mentioned in HPI Physical Exam Vital Signs Date Time Temp Pulse Resp B/P (MAP) Pulse Ox O2 Delivery O2 Flow Rate FiO2 03/25/19 23:33 98.2 86 16 123/84 (97) 100 Room Air Vitals normal Sp02 EP Interpretation: reviewed, normal General Appearance: well appearing, no apparent distress, alert Head: normocephalic, atraumatic Eyes: right eye other - Conjunctiva injected; bilateral eye PERRL, bilateral eye EOMI ENT: hearing grossly normal, normal pharynx Neck: full range of motion, supple, no meningismus Respiratory: chest non-tender, lungs clear, normal breath sounds Cardiovascular #1: regular rate, rhythm, no murmur Gastrointestinal: normal bowel sounds, non tender, no mass, no organomegaly, no bruit, non-distended Musculoskeletal: back normal, gait/station normal, normal range of motion Psychiatric: mood/affect normal Medical Decision Making Diagnostic Impression: Primary Impression: Allergic reaction Qualified Codes: T78.40XA - Allergy, unspecified, initial encounter Additional Impression: Conjunctivitis Qualified Codes: H10.31 - Unspecified acute conjunctivitis, right eye ER Course Patient presents with reaction to eyedrop. Will switch class. No evidence of abscess. Will discharge home. Last Vital Signs Date Time Temp Pulse Resp B/P (MAP) Pulse Ox O2 Delivery O2 Flow Rate FiO2 03/25/19 23:35 98.2 86 16 123/84 100 Room Air Status: unchanged Disposition: HOME, SELF-CARE Condition: Stable Scripts Ofloxacin (OCUFLOX) 5 Ml Drops 5 ML OP BID, #5 ML Prov: Darian Garcia MD 03/26/19 Patient Instructions: Allergies Additional Instructions: Follow-up with your doctor in 7 days for recheck. Return if worse. Darian Garcia MD Mar 26, 2019 00:12
--- NOTE | 2019-03-26 00:15 | NUR ---
ER DISCHARGE NOTE: Patient is cleared to be discharged per ERMD, pt is aox4, on room air, with stable vital signs. pt was given dc and prescription instructions, pt was able to verbalize understanding, pt id band REMOVED. pt is able to ambulate with steady gait. pt took all belongings.
== END 2019-03-26 00:15 | disposition home or self-care (01) ==
LOC: EMR 23:58
DX: T78.40XA Allergy, unspecified, initial encounter (principal); X58.XXXA Exposure to other specified factors, initial encounter; H10.31 Unspecified acute conjunctivitis, right eye; Z85.41 Personal history of malignant neoplasm of cervix uteri
CPT/HCPCS: 99282

== ENCOUNTER 2019-04-20 14:10 | Emergency (ER) | payer OTHER ==
[~2019-04-20] VITALS: Ht 162.6 cm; Wt 81.6 kg
[2019-04-20] MEDS ORDERED: NKM (14:18)
--- NOTE | 2019-04-20 14:24 | NUR ---
ED Nurse Note: PT WALKED IN TO ER TODAY FROM HOME. AOX4. PT C/O SORE THROAT WORSENED BY SWALLOWING, BODY ACHES, AND FEVER X 2 DAYS AGO. PAIN 6/10. TEMP AT BEDSIDE: 99.8F. PT DENIES COUGH OR CONGESTION. PT STATES SHE TOOK DAYQUIL TODAY BUT NO MEDICATIONS THE LAST TWO DAYS. LUNG SOUNDS CLEAR IN ALL LOBES. NO SIGNS OF RESPIRATORY DISTRESS, RETRACTIONS, OR ACCESSORY MUSCLE USE NOTED.
[2019-04-20 14:25] VITALS: BP 124/86
[2019-04-20] MEDS ORDERED: Dexamethasone 4mg/ml vial IM ONE (14:45)
--- NOTE | 2019-04-20 14:49 | Emergency Room Report ---
History of Present Illness General Chief Complaint: Flu Like Symptoms Source: Patient Present Illness HPI 23-year-old female presents to the emergency department complaining of 8 out of 9 severity sore throat, to delay swelling, fevers and chills x3 days. 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 Patient denies recent travel or history of immune compromise she denies cough, neck pain/stiffness, headache, photophobia,, chest pain, palpitations, or shortness of breath. Allergies: Coded Allergies: NITROFURANTOIN (Verified Allergy, Unknown, 01/16/18) Patient History Past Medical History: see triage record Past Surgical History: none Pertinent Family History: none Last Menstrual Period: 03/25/2019 Now: No Reviewed Nursing Documentation: PMH: Agreed; PSxH: Agreed Nursing Documentation-PMH Past Medical History: No History, Except For Hx Asthma: No - Tonsilitis Hx Cancer: Yes - Cervical Cancer (LEEP procedure) Hx Gastrointestinal Problems: No - Hx Neurological Problems: No - Left knee surgery Review of Systems All Other Systems: negative except mentioned in HPI Physical Exam Vital Signs Date Time Temp Pulse Resp B/P (MAP) Pulse Ox O2 Delivery O2 Flow Rate FiO2 04/20/19 14:14 99.9 107 16 127/92 (104) 97 Room Air Sp02 EP Interpretation: reviewed, normal General Appearance: no apparent distress, alert, GCS 15, non-toxic Head: normocephalic, atraumatic Eyes: bilateral eye normal inspection, bilateral eye PERRL ENT: hearing grossly normal, normal voice, uvula midline, moist mucus membranes , tonsillar swelling, pharyngeal erythema, tonsillar exudate Neck: full range of motion Respiratory: lungs clear, normal breath sounds, speaking full sentences Cardiovascular #1: regular rate, rhythm Musculoskeletal: gait/station normal, normal range of motion, non-tender Neurologic: alert, oriented x3, responsive, motor strength/tone normal, sensory intact, speech normal, grossly normal Psychiatric: judgement/insight normal Lymphatic: no adenopathy Medical Decision Making PA Attestation Dr. Hendrickson is my supervising Physician whom patient management has been discussed with. Diagnostic Impression: Primary Impression: Acute pharyngitis Qualified Codes: J02.0 - Streptococcal pharyngitis ER Course 23-year-old female presents to the emergency department complaining of 8 out of 9 severity sore throat, to delay swelling, fevers and chills x3 days. 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 Patient denies recent travel or history of immune compromise she denies cough, neck pain/stiffness, headache, photophobia,, chest pain, palpitations, or shortness of breath. Ddx considered but are not limited to: pharyngitis, strep, PRODUCT LEAD, ludwigs angina, URI Vital signs: are WNL, pt. is afebrile H&PE are most consistent with: pharyngitis presumed strep. ORDERS: None required at this time as the diagnosis is clinical ED INTERVENTIONS: Decadron 8mg IM DISCHARGE: At this time pt. is stable for d/c to home. Will provide printed patient care instructions, and any necessary prescriptions. Care plan and follow up instructions have been discussed with the patient prior to discharge. Last Vital Signs Date Time Temp Pulse Resp B/P (MAP) Pulse Ox O2 Delivery O2 Flow Rate FiO2 04/20/19 14:25 99.8 96 18 124/86 98 Room Air Disposition: HOME, SELF-CARE Condition: Stable Departure Forms: Return to Work Return to Work Date: Apr 24, 2019 Work Restrictions: None Other Restrictions: May return Sooner if Symptoms have resolved. Return to Full Activity: Apr 24, 2019 Patient Instructions: Pharyngitis, [id number] Additional Instructions: Take medications as directed. Follow up with a Primary Care Provider in 3-5 days, even if your symptoms have resolved. --Please review list of primary care clinics, if you do not already have a primary care provider Return sooner to ED if new symptoms occur, or current symptoms become worse. - Please note that this Emergency Department Report was dictated using Ismoleleading firefighter technology software, occasionally this can lead to erroneous entry secondary to interpretation by the dictation equipment. Laura Ferguson Apr 20, 2019 14:49
[2019-04-20] MEDS ORDERED: LIDOCAINE VISC100 ML ORAL (14:51)
[2019-04-20] MEDS ORDERED: IBUPROFEN600 MG ORAL (14:51)
[2019-04-20] MEDS ORDERED: AMOXICILLIN500 MG ORAL (14:51)
--- NOTE | 2019-04-20 15:07 | NUR ---
ED Nurse Note: PT LAYING PEACEFULLY IN BED IN NAD. AOX4. PRESCRIPTIONS AND DISCHARGE PAPERWORK EXPLAINED TO PT. PT VERBALIZES UNDERSTANDING AND ALL QUESTIONS ANSWERED. PRESCRIPTIONS AND DISCHARGE PAPERWORK GIVEN TO PT AND ID WRISTBAND REMOVED. PT WALKED OUT OF ER WITH STEADY GAIT AND ALL BELONGINGS. VSS.
[2019-04-20 15:09] VITALS: BP 122/84
== END 2019-04-20 15:10 | disposition home or self-care (01) ==
LOC: EMR 14:58
DX: J02.0 Streptococcal pharyngitis (principal); Z88.8 Allergy status to other drugs, medicaments and biological substances; Z85.41 Personal history of malignant neoplasm of cervix uteri
CPT/HCPCS: 96372; 99283; J1100

== ENCOUNTER 2019-06-17 17:12 | Emergency (ER) | payer OTHER ==
[~2019-06-17] VITALS: Ht 162.6 cm; Wt 81.6 kg
[2019-06-17 17:28] VITALS: BP 118/79
--- NOTE | 2019-06-17 17:35 | NUR ---
ED Nurse Note: PT. AAOX4. AMBULATORY. WALKED IN TO ER. PER PT. SHE HAS BEEN HAVING MIGRAINE SINCE FRIDAY. PT. REPORTED SHE THREW UP TODAY AFTER ATTEMPTING TO RELIEVE HEADACHE WITH TYLENOL. NO S/S OF ACUTE DISTRESS NOTED AT THIS TIME.
[2019-06-17] MEDS ORDERED: Metoclopramide 10mg/2ml Inj IM ONE (18:00)
[2019-06-17] MEDS ORDERED: Ketorolac 30mg Inj IM ONE (18:00)
[2019-06-17] MEDS ORDERED: Excedrin Migraine tab ORAL ONE (18:00)
--- NOTE | 2019-06-17 18:00 | Emergency Room Report ---
History of Present Illness General Chief Complaint: Headache Source: Patient Present Illness HPI 24 YO female presents to the emergency department complaining of 5 out of 10 severity progressive onset frontal throbbing headache x 3 days. Patient reports previous history of migraines in the past which resolved for approximately 2 years. Patient states she attempted to take Tylenol however she had no relief. Patient states she has some sensitivity to light she denies neck pain or stiffness. Patient denies hyperacusis. Patient reports one episode of vomiting this morning she denies blood in the vomit she denies abdominal pain or tenderness. Patient denies suspicion of . Patient denies dysuria, urinary frequency, hematuria or urinary urgency. She denies weakness in the extremities. Denies CP, Palpitations, LOC, AMS, dizziness, Changes in Vision, Sensation, paresthesias, or a sudden severe headache. Allergies: Coded Allergies: NITROFURANTOIN (Verified Allergy, Unknown, 01/16/18) Patient History Past Medical History: see triage record Past Surgical History: none Pertinent Family History: none Last Menstrual Period: 06/08/19 Now: No Reviewed Nursing Documentation: PMH: Agreed; PSxH: Agreed Nursing Documentation-PMH Hx Asthma: No - Tonsilitis Hx Cancer: Yes - Cervical Cancer (LEEP procedure) Hx Gastrointestinal Problems: No - Hx Neurological Problems: No - Left knee surgery Review of Systems All Other Systems: negative except mentioned in HPI Physical Exam Vital Signs Date Time Temp Pulse Resp B/P (MAP) Pulse Ox O2 Delivery O2 Flow Rate FiO2 06/17/19 17:28 99.3 69 17 118/79 (92) 97 06/17/19 17:28 Room Air Sp02 EP Interpretation: reviewed, normal General Appearance: well appearing, no apparent distress, alert, GCS 15, non- toxic Head: normocephalic, atraumatic Eyes: bilateral eye normal inspection, bilateral eye PERRL, bilateral eye other - no photophobia on exam ENT: hearing grossly normal, normal voice Neck: full range of motion, no meningismus, no bony tend Respiratory: lungs clear, normal breath sounds, no wheezing, speaking full sentences Cardiovascular #1: regular rate, rhythm Gastrointestinal: normal bowel sounds, non tender, soft, non-distended, no guarding Genitourinary: normal inspection, no CVA tenderness Musculoskeletal: gait/station normal, normal range of motion, non-tender Neurologic: alert, oriented x3, responsive, motor strength/tone normal, sensory intact, normal gait, speech normal, grossly normal Psychiatric: judgement/insight normal Lymphatic: no adenopathy Medical Decision Making PA Attestation Dr. Schwartz Is my supervising Physician whom patient management has been discussed with. Diagnostic Impression: Primary Impression: Headache Qualified Codes: R51 - Headache ER Course 24 YO female presents to the emergency department complaining of 5 out of 10 severity progressive onset frontal throbbing headache x 3 days. Patient reports previous history of migraines in the past which resolved for approximately 2 years. Patient states she attempted to take Tylenol however she had no relief. Patient states she has some sensitivity to light she denies neck pain or stiffness. Patient denies hyperacusis. Patient reports one episode of vomiting this morning she denies blood in the vomit she denies abdominal pain or tenderness. Patient denies suspicion of . Patient denies dysuria, urinary frequency, hematuria or urinary urgency. She denies weakness in the extremities. Denies CP, Palpitations, LOC, AMS, dizziness, Changes in Vision, Sensation, paresthesias, or a sudden severe headache. Ddx considered but are not limited to migraine, , UTI, SAH, Pseudomotor Cerebri,, Mass lesion, Cluster STRICKLAND, Tension STRICKLAND, Post lumbar puncture STRICKLAND. Vital signs: are WNL, pt. is afebrile H&PE are most consistent with migraine headache, No focal neurological deficits. pt. NAD. non-toxic in appearance. sitting comfortable. ORDERS: - UA: Unremarkable -Urine Hcg: negative ED INTERVENTIONS: - Reglan IM -IM Toradol -Benadryl PO - Excedrin Migraine PO --Upon re-assessment pt. reports her STRICKLAND has subsided after above interventions. DISCHARGE: At this time pt. is stable for d/c to home. Will provide printed patient care instructions, and any necessary prescriptions. Care plan and follow up instructions have been discussed with the patient prior to discharge. Labs Test 06/17/19 18:11 Urine Color Pale yellow Urine Appearance Clear Urine pH 7.0 (4.5-8.0) Urine Specific [place] 1.015 (1.005-1.035) Urine Protein Negative (NEGATIVE) Urine Glucose (UA) Negative (NEGATIVE) Urine Ketones Negative (NEGATIVE) Urine Blood Negative (NEGATIVE) Urine Nitrite Negative (NEGATIVE) Urine Bilirubin Negative (NEGATIVE) Urine Urobilinogen Normal MG/DL (0.0-1.0) Urine Leukocyte Esterase Negative (NEGATIVE) Last Vital Signs Date Time Temp Pulse Resp B/P (MAP) Pulse Ox O2 Delivery O2 Flow Rate FiO2 06/17/19 17:28 99.3 69 17 118/79 97 Room Air Disposition: HOME, SELF-CARE Condition: Stable Scripts Metoclopramide Hcl* (REGLAN*) 5 Mg Tablet 5 MG ORAL EVERY 6 HOURS for Headache/Nausea/ vomiting, #10 TAB Prov: Laura Ferguson 06/17/19 Asa/Salicylam/Acetaminoph/Caff (PAIN RELIEF TABLET) 1 Each Tablet 1 EACH PO Q6HR, #30 TAB Prov: Laura Ferguson 06/17/19 Patient Instructions: General Headache Without Cause, Migraine Headache Additional Instructions: Take medications as directed. Follow up with a Primary Care Provider in 3-5 days For a referral to have NEUROLOGIST Evaluation, even if your symptoms have resolved. --Please review list of primary care clinics, if you do not already have a primary care provider Return sooner to ED if new symptoms occur, or current symptoms become worse. - Please note that this Emergency Department Report was dictated using Contixsweatband cutting machine operator technology software, occasionally this can lead to erroneous entry secondary to interpretation by the dictation equipment. Laura Ferguson Jun 17, 2019 18:00
[2019-06-17 19:11] LABS: APPEARANCE,URINE CLEAR; BILIRUBIN, URINE NEGATIVE (NEGATIVE); COLOR,URINE PALE YELLOW; GLUCOSE, URINE (UA) NEGATIVE (NEGATIVE); KETONES,URINE NEGATIVE (NEGATIVE); PROTEIN,URINE NEGATIVE (NEGATIVE)
[2019-06-17 19:12] LABS: LEUKOCYTE ESTERASE ,URINE NEGATIVE (NEGATIVE); NITRITE,URINE NEGATIVE (NEGATIVE); UROBILINOGEN,URINE NORMAL MG/DL (0.0-1.0)
[2019-06-17] MEDS ORDERED: PAIN RELIEF TA1 EACH PO (19:18)
[2019-06-17] MEDS ORDERED: REGLAN5 MG ORAL (19:18)
[2019-06-17 19:24] VITALS: BP 118/79
--- NOTE | 2019-06-17 19:24 | NUR ---
ER DISCHARGE NOTE: Patient is cleared to be discharged per ERMD, pt is aox4, on room air, with stable vital signs. pt was given dc and prescription instructions, pt was able to verbalize understanding, pt id band removed. pt is able to ambulate with steady gait. pt took all belongings.
== END 2019-06-17 19:25 | disposition home or self-care (01) ==
LOC: EMR 19:12
DX: R51 Headache (principal); Z85.41 Personal history of malignant neoplasm of cervix uteri; Z88.8 Allergy status to other drugs, medicaments and biological substances
CPT/HCPCS: 81003; 81025; 96372; 99283; J1885; J2765

== ENCOUNTER 2019-08-09 17:15 | Emergency (ER) | payer OTHER ==
[~2019-08-09] VITALS: Ht 162.6 cm; Wt 81.6 kg
[~2019-08-09 17:15] MED LIST changes: +PAIN RELIEF TA1 EACH PO; +REGLAN5 MG ORAL
[2019-08-09] MEDS ORDERED: NKM (17:23)
--- NOTE | 2019-08-09 17:33 | NUR ---
ED Nurse Note: Patient walked in from home c/o vaginal bleeding started today. LMP 07/27/19. Patient also c/o lower back and lower abdominal pain 01/22. Denies dysuria/problems urinating. Placed patient in hospital gown. No distress at this time, will continue to monitor.
--- NOTE | 2019-08-09 17:34 | NUR ---
ED Nurse Note: urine collected and sent to lab.
[2019-08-09 17:37] VITALS: BP 125/78
--- NOTE | 2019-08-09 17:43 | NUR ---
ED Nurse Note: PA at bedside
[2019-08-09 17:54] LABS: APPEARANCE,URINE SLIGHTLY CLOUDY; BILIRUBIN, URINE NEGATIVE (NEGATIVE); GLUCOSE, URINE (UA) NEGATIVE (NEGATIVE); KETONES,URINE NEGATIVE (NEGATIVE); LEUKOCYTE ESTERASE ,URINE NEGATIVE (NEGATIVE); NITRITE,URINE NEGATIVE (NEGATIVE); PH,URINE 6.5 (4.5-8.0); PROTEIN,URINE 2+ (NEGATIVE); UROBILINOGEN,URINE NORMAL MG/DL (0.0-1.0)
[2019-08-09 17:57] LABS: COLOR,URINE YELLOW
--- NOTE | 2019-08-09 18:33 | Emergency Room Report ---
History of Present Illness General Chief Complaint: Female Urogenital Problems Source: Patient Present Illness HPI 24 YO female presents to the ED C/o 01/22 in severity pain with urination, vaginal bleeding, and midline lower abdominal pain x 1 day. She denies N/V. She denies and states her LMP was 1 week ago. Pt .is with pharmacological termination. Hx. of LEEP procedure. No recent surgeries. Pt. reports she is not taking BC, she has been off for over 5 months. She reports previously regular periods. Pt. reports some midline back cramps but denies flank pain. She reports urinary urgency. No vaginal d/c or suspicion of STI. Pt. denies heavy bleeding. She reports approx 2 pads worth of bleeding today, dark red blood. NO other aggravating or relieving factors. Allergies: Coded Allergies: NITROFURANTOIN (Verified Allergy, Unknown, 01/16/18) Patient History Past Medical History: see triage record Past Surgical History: none Pertinent Family History: none Last Menstrual Period: 08/02/19 Now: No : 1 Para: 0 Reviewed Nursing Documentation: PMH: Agreed; PSxH: Agreed Nursing Documentation-PMH Hx Cardiac Problems: Yes - left meniscus surgery Hx Asthma: No - Tonsilitis Hx Cancer: Yes - cervical cancer Hx Gastrointestinal Problems: No - Hx Neurological Problems: No - Left knee surgery Review of Systems All Other Systems: negative except mentioned in HPI Physical Exam Vital Signs Date Time Temp Pulse Resp B/P (MAP) Pulse Ox O2 Delivery O2 Flow Rate FiO2 08/09/19 17:18 98.8 79 18 125/78 (94) 99 Room Air Sp02 EP Interpretation: reviewed, normal General Appearance: no apparent distress, alert, GCS 15, non-toxic Head: normocephalic, atraumatic Eyes: bilateral eye normal inspection, bilateral eye PERRL ENT: hearing grossly normal, normal voice Neck: full range of motion Respiratory: lungs clear, normal breath sounds, speaking full sentences Cardiovascular #1: regular rate, rhythm Gastrointestinal: non tender, soft, non-distended, no guarding Genitourinary: normal inspection, no CVA tenderness, deferred Musculoskeletal: normal range of motion, gait/station normal, non-tender Neurologic: alert, motor strength/tone normal, oriented x3, sensory intact, responsive, speech normal Psychiatric: judgement/insight normal Skin: no rash Lymphatic: no adenopathy Medical Decision Making PA Attestation Dr. Hendricksno is my supervising Physician whom patient management has been discussed with. Diagnostic Impression: Primary Impression: UTI (urinary tract infection) Qualified Codes: N30.01 - Acute cystitis with hematuria ER Course 24 YO female presents to the ED C/o 5/10 in severity pain with urination, vaginal bleeding, and midline lower abdominal pain x 1 day. She denies N/V. She denies and states her LMP was 1 week ago. Pt .is with pharmacological termination. Hx. of LEEP procedure. No recent surgeries. Pt. reports she is not taking BC, she has been off for over 5 months. She reports previously regular periods. Pt. reports some midline back cramps but denies flank pain. She reports urinary urgency. No vaginal d/c or suspicion of STI. Pt. denies heavy bleeding. She reports approx 2 pads worth of bleeding today, dark red blood. NO other aggravating or relieving factors. Ddx considered but are not limited to UTi , Pyelo, STI, Stone, Cystitis, DUB, ovarian cyst, renal calculi, STI just to name a few. Vital signs: are WNL, pt. is afebrile H&PE are most consistent with UTI or non-emergent dysfunctional uterine bleeding. pt. does not show signs of significant blood loss or symptomatic anemia. PE does not suggest acute abdomen. Pt. is non-toxic in appearance and NAD ORDERS: - UA labs are attached- moderate bacteria. -Urine HCG: Negative ED INTERVENTIONS: None required at this time. DISCHARGE: At this time pt. is stable for d/c to home. Will provide printed patient care instructions, and any necessary prescriptions. Care plan and follow up instructions have been discussed with the patient prior to discharge. Labs Test 08/09/19 17:30 Urine Color Yellow Urine Appearance Slightly cloudy Urine pH 6.5 (4.5-8.0) Urine Specific Powell 1.020 (1.005-1.035) Urine Protein 2+ (NEGATIVE) Urine Glucose (UA) Negative (NEGATIVE) Urine Ketones Negative (NEGATIVE) Urine Blood 5+ (NEGATIVE) Urine Nitrite Negative (NEGATIVE) Urine Bilirubin Negative (NEGATIVE) Urine Urobilinogen Normal MG/DL (0.0-1.0) Urine Leukocyte Esterase Negative (NEGATIVE) Urine RBC 15-20 /HPF (0 - 2) Urine WBC 2-4 /HPF (0 - 2) Urine Squamous Epithelial Cells Many /LPF (NONE/OCC) Urine Bacteria Moderate /HPF (NONE) Urine HCG, Qualitative Negative (NEGATIVE) Last Vital Signs Date Time Temp Pulse Resp B/P (MAP) Pulse Ox O2 Delivery O2 Flow Rate FiO2 08/09/19 17:37 98.8 90 18 125/78 99 Room Air Disposition: HOME, SELF-CARE Condition: Stable Scripts Ibuprofen* (MOTRIN*) 600 Mg Tablet 600 MG ORAL THREE TIMES A DAY, #30 TAB 0 Refills Prov: Laura Ferguson 08/09/19 Trimethoprim/Sulfamethoxazole 160/800* (BACTRIM DS TABLET*) 1 Each Tablet 1 TAB ORAL DAILY for 5 Days, #10 TAB Prov: Laura Ferguson 08/09/19 Patient Instructions: Urinary Tract Infection Additional Instructions: Take medications as directed. Follow up with a OBGYN within 3 days, even if your symptoms have resolved. Return sooner to ED if new symptoms occur, or current symptoms become worse. - Please note that this Emergency Department Report was dictated using [employer] technology software, occasionally this can lead to erroneous entry secondary to interpretation by the dictation equipment. Laura Ferguson Aug 09, 2019 18:33
[2019-08-09] MEDS ORDERED: IBUPROFEN600 MG ORAL (18:34)
[2019-08-09] MEDS ORDERED: BACTRIM DS TAB1 EAC1 ORAL (18:34)
[2019-08-09 18:46] VITALS: BP 122/75
== END 2019-08-09 18:45 | disposition home or self-care (01) ==
LOC: EMR 18:00
DX: N30.01 Acute cystitis with hematuria (principal); Z85.41 Personal history of malignant neoplasm of cervix uteri; Z88.8 Allergy status to other drugs, medicaments and biological substances
CPT/HCPCS: 81001; 81025; 87086; 99283

== ENCOUNTER 2019-08-23 21:24 | Emergency (ER) | payer OTHER ==
[~2019-08-23] VITALS: Ht 162.6 cm; Wt 81.6 kg
[~2019-08-23 21:24] MED LIST changes: +BACTRIM DS TAB1 EAC1 ORAL
[2019-08-23 21:35] VITALS: BP 125/86
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
[2019-08-23 22:57] VITALS: BP 127/85
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
--- NOTE | 2019-08-24 14:35 | Diagnostic Imaging Report ---
Indication: Left knee pain Technique: 3 views of the left knee Comparison: None Findings: No acute fractures. No dislocations. Joint spaces are preserved. No suprapatellar effusion. Impression: Negative
== END 2019-08-23 22:57 | disposition home or self-care (01) ==
LOC: EMR 22:00
DX: S89.92XA Unspecified injury of left lower leg, initial encounter (principal); M54.5 Low back pain; Z85.41 Personal history of malignant neoplasm of cervix uteri; Z88.8 Allergy status to other drugs, medicaments and biological substances; V43.62XA Car passenger injured in collision with other type car in traffic accident, initial encounter; Y92.410 Unspecified street and highway as the place of occurrence of the external cause
CPT/HCPCS: 72020; 73562; Z7502; 99284

== ENCOUNTER 2019-10-19 23:48 | Emergency (ER) | payer OTHER ==
[~2019-10-19] VITALS: Ht 160 cm; Wt 81.6 kg
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
--- NOTE | 2019-10-20 00:11 | Emergency Room Report ---
History of Present Illness General Chief Complaint: Abdominal Pain Source: Patient Present Illness HPI This is a 24-year-old female with history of menorrhagia. She presents with chief complaint of abdominal pain. She is status post D&C by her interactive media director for menorrhagia. She had a local injection and then was prescribed Motrin and Zofran. She said is not helping. Pain is sharp and crampy mostly in the left side. Pain is 9 out of 10. No relief with Motrin. Worse with palpation. No bleeding. Denies any other complaint. Allergies: Coded Allergies: NITROFURANTOIN (Verified Allergy, Unknown, 01/16/18) Patient History Past Medical History: see triage record, old chart reviewed Past Surgical History: none Pertinent Family History: none Social History: Denies: smoking Now: No Immunizations: other Reviewed Nursing Documentation: PMH: Agreed; PSxH: Agreed Nursing Documentation-PMH Past Medical History: No History, Except For Hx Cardiac Problems: Yes - left meniscus surgery Hx Asthma: No - Tonsilitis Hx Cancer: Yes - cervical cancer Hx Gastrointestinal Problems: No - Hx Neurological Problems: No - Left knee surgery Review of Systems Eye: Denies: eye pain, blurred vision ENT: Denies: ear pain, nose congestion, throat swelling Respiratory: Denies: cough, shortness of breath Cardiovascular: Denies: chest pain, palpitations Gastrointestinal: Reports: abdominal pain; Denies: diarrhea, nausea, vomiting Musculoskeletal: Denies: back pain, joint pain Skin: Denies: rash Neurological: Denies: headache, numbness Endocrine: Denies: increased thirst, increased urine Hematologic/Lymphatic: Denies: easy bruising All Other Systems: negative except mentioned in HPI Physical Exam Vital Signs Date Time Temp Pulse Resp B/P (MAP) Pulse Ox O2 Delivery O2 Flow Rate FiO2 10/19/19 23:56 98.1 95 16 118/74 (89) 100 Room Air Vitals normal Sp02 EP Interpretation: reviewed, normal General Appearance: well appearing, no apparent distress, alert Head: normocephalic, atraumatic Eyes: bilateral eye PERRL, bilateral eye EOMI ENT: hearing grossly normal, normal pharynx Neck: full range of motion, supple, no meningismus Respiratory: chest non-tender, lungs clear, normal breath sounds Cardiovascular #1: regular rate, rhythm, no murmur Gastrointestinal: normal bowel sounds, no mass, no organomegaly, no bruit, non- distended, tenderness - Mostly left lower quadrant Musculoskeletal: back normal, normal range of motion, gait/station normal Psychiatric: mood/affect normal Medical Decision Making Diagnostic Impression: Primary Impression: Abdominal pain Qualified Codes: R10.30 - Lower abdominal pain, unspecified Additional Impression: UTI (urinary tract infection) Qualified Codes: N30.00 - Acute cystitis without hematuria ER Course Patient presents with abdominal pain status post procedure. No evidence of any perforation or intra-abdominal process. Will discharge home. CT/MRI/US Diagnostic Results CT/MRI/US Diagnostic Results : Imaging Test Ordered: CT abdomen pelvis Impression Per radiologist negative Last Vital Signs Date Time Temp Pulse Resp B/P (MAP) Pulse Ox O2 Delivery O2 Flow Rate FiO2 10/19/19 23:56 98.1 95 16 118/74 (89) 100 Room Air Status: improved Disposition: HOME, SELF-CARE Condition: Stable Scripts Cephalexin* (KEFLEX*) 500 Mg Capsule 500 MG ORAL TID, #21 CAP Prov: Darian Garcia MD 10/20/19 Hydrocodone Bit/Acetaminophen 5-325* (NORCO 5-325*) 1 Each Tablet 1 TAB ORAL Q6H PRN for For Pain, #10 TAB 0 Refills Prov: Darian Garcia MD 10/20/19 Referrals: [facility] (PCP) Patient Instructions: Abdominal Pain, Adult Additional Instructions: Follow-up with your doctor in 7 days. Return if symptoms worsen. Darian Garcia MD Oct 20, 2019 00:11
[2019-10-20] MEDS ORDERED: HYDROmorphone 1mg/ml Carpuject IVP ONE (00:15)
[2019-10-20 00:17] VITALS: BP 118/74
[2019-10-20 00:21] LABS: BASOPHILS % (AUTO) 0.9 % (0.0-2.0); EOSINOPHILS % (AUTO) 2.2 % (0.0-3.0); HEMATOCRIT 40.8 % (37.0-47.0); LYMPHOCYTES % (AUTO) 26.7 % (20.0-45.0); MEAN CORPUSCULAR VOLUME 81 FL (80-99); MONOCYTES % (AUTO) 6.1 % (1.0-10.0); NEUTROPHILS % (AUTO) 64.1 % (45.0-75.0); PLATELET COUNT 267 K/UL (150-450); RED BLOOD COUNT 5.07 M/UL (4.20-5.40); RED CELL DISTRIBUTION WIDTH 11.8 % (11.6-14.8); WHITE BLOOD COUNT 11.2 K/UL (4.8-10.8)
[2019-10-20 00:22] LABS: BILIRUBIN, URINE NEGATIVE (NEGATIVE); COLOR,URINE PALE YELLOW; GLUCOSE, URINE (UA) NEGATIVE (NEGATIVE); KETONES,URINE NEGATIVE (NEGATIVE); LEUKOCYTE ESTERASE ,URINE 1+ (NEGATIVE); NITRITE,URINE NEGATIVE (NEGATIVE); PH,URINE 5 (4.5-8.0); PROTEIN,URINE NEGATIVE (NEGATIVE); UROBILINOGEN,URINE NORMAL MG/DL (0.0-1.0)
--- NOTE | 2019-10-20 00:25 | NUR ---
HAND-OFF: Report given to Los romero RN.
[2019-10-20 00:36] LABS: APPEARANCE,URINE SLIGHTLY CLOUDY
[2019-10-20 00:42] LABS: ANION GAP 9 mmol/L (5-15); BLOOD UREA NITROGEN 13 mg/dL (7-18); CALCIUM 8.9 MG/DL (8.5-10.1); CARBON DIOXIDE 26 MMOL/L (21-32); CHLORIDE 103 MMOL/L (98-107); CREATININE 0.8 MG/DL (0.55-1.30); SODIUM 138 MMOL/L (136-145)
[2019-10-20 00:46] LABS: ALANINE AMINOTRANSFERASE 18 U/L (12-78); ALBUMIN 3.8 G/DL (3.4-5.0); ALBUMIN/GLOBULIN RATIO 0.8 (1.0-2.7); ALKALINE PHOSPHATASE 88 U/L (46-116); ASPARTATE AMINO TRANSFERASE 9 U/L (15-37); BILIRUBIN,TOTAL 0.1 MG/DL (0.2-1.0)
--- NOTE | 2019-10-20 00:55 | NUR ---
ED Nurse Note: pt went for ct via wheelchair in stable condition accompanied by diamond sizer and grader
[2019-10-20] MEDS ORDERED: cefTRIAXone 1 GM in NS 55 ML IVPB ONE (01:00)
--- NOTE | 2019-10-20 01:05 | NUR ---
ED Nurse Note: pt back from ct via walking accompanied by director educational radio
--- NOTE | 2019-10-20 01:33 | Diagnostic Imaging Report ---
INDICATION: Abdominal pain TECHNIQUE: Continuous helical transaxial imaging of the abdomen and pelvis was obtained from the lung bases to the pubic symphysis. No intravenous contrast was administered. Coronal 2-D reformats were also obtained. Automatic Exposure Control was utilized. Total Dose length Product (DLP): 1596.[address] Dose Index Volume (CTDIvol): 27.1 mGy Comparison: none FINDINGS: Lungs: The lung bases are clear as visualized. Liver: The liver is not completely visualized on this examination. The dome of the liver is above the [id number]. This is a technical air. Gallbladder/biliary system: No gallstones are identified. There is no evidence of intrahepatic or extrahepatic biliary ductal dilatation. Spleen: Unremarkable Pancreas: Unremarkable Kidneys: No definite stone or hydronephrosis are identified.. Adrenal glands: Unremarkable Bowel: Appendix is normal. Bowel gas pattern is nonobstructive. Bladder: Unremarkable Aorta/IVC: Unremarkable Peritoneum: There is no free fluid. Uterus and both ovaries are seen.. Bones: Unremarkable IMPRESSION: No acute findings. One technical note, the liver is not imaged in its entirety. [facility] has communicated the preliminary results to the Emergency Department. Their findings are largely concordant with this report. Note: Evaluation of solid organs is limited on non contrast imaging. The CT scanner at [facility] is accredited by the [employer] and the scans are performed using dose optimization techniques as appropriate to a performed exam including Automatic Exposure control.
[2019-10-20] MEDS ORDERED: CEPHALEXIN500 MG ORAL (01:55)
[2019-10-20] MEDS ORDERED: NORCO 5-325 TA1 EACH ORAL (01:55)
[2019-10-20 02:00] VITALS: BP 118/74
--- NOTE | 2019-10-20 02:00 | NUR ---
ER DISCHARGE NOTE: Patient is cleared to be discharged per ERMD, pt is aox4, on room air, with stable vital signs. pt was given dc and prescription instructions, pt was able to verbalize understanding, pt id band and iv site removed without complications. pt is able to ambulate with steady gait. pt took all belongings.
== END 2019-10-20 02:00 | disposition home or self-care (01) ==
LOC: EMR 10-20 00:02
DX: N30.00 Acute cystitis without hematuria (principal); R10.30 Lower abdominal pain, unspecified; N92.0 Excessive and frequent menstruation with regular cycle; Z85.41 Personal history of malignant neoplasm of cervix uteri; Z88.8 Allergy status to other drugs, medicaments and biological substances
CPT/HCPCS: 36415; 74176; 80053; 81003; 83690; 85025; 87086; 96361; 96365; 96375; J0696; J1170; J2405; J7030; Z7502; 99284

== ENCOUNTER 2020-01-11 22:59 | Emergency (ER) | payer OTHER ==
[~2020-01-11] VITALS: Ht 157.5 cm; Wt 93.0 kg
[~2020-01-11 22:59] MED LIST changes: +NORCO 5-325 TA1 EACH ORAL
[2020-01-11 23:06] VITALS: BP 134/68
--- NOTE | 2020-01-11 23:06 | NUR ---
ED Nurse Note: Walk-in patient with complaints of recent UTI, previously diagnosed and with antibiotics already prescribed. Patient reports new discharge after taking medication and suspects bacterial vaginosis. Patient currently rendering urine sample in the restroom.
--- NOTE | 2020-01-11 23:10 | NUR ---
ED Nurse Note: Urine specimen collected and sent doen to lab.
[2020-01-11] MEDS ORDERED: Fluconazole 150mg tab ORAL ONE (23:30)
[2020-01-11 23:36] LABS: APPEARANCE,URINE SLIGHTLY CLOUDY; BILIRUBIN, URINE NEGATIVE (NEGATIVE); GLUCOSE, URINE (UA) NEGATIVE (NEGATIVE); KETONES,URINE NEGATIVE (NEGATIVE); LEUKOCYTE ESTERASE ,URINE 3+ (NEGATIVE); NITRITE,URINE NEGATIVE (NEGATIVE); PH,URINE 6 (4.5-8.0); PROTEIN,URINE 2+ (NEGATIVE); UROBILINOGEN,URINE 1 MG/DL (0.0-1.0)
--- NOTE | 2020-01-11 23:41 | Emergency Room Report ---
History of Present Illness General Chief Complaint: Vaginal Source: Patient Present Illness HPI 24-year-old female presents after increased vaginal itching. Patient denies any shortness of breath or fever. Had recent increased labial discomfort associated with some increased urinary frequency. Denies any fever or flank pain. She not been having any hematuria. Reports having increased whitish discharge. Had recently been treated with Diflucan. She is currently taking Bactrim for urinary infection. Allergies: Coded Allergies: NITROFURANTOIN (Verified Allergy, Unknown, 01/16/18) COVID-19 Screening Contact w/high risk pt: No Recent Travel to affected area: No Experienced COVID-19 symptoms?: No Patient History Past Medical History: see triage record Reviewed Nursing Documentation: PMH: Agreed; PSxH: Agreed Nursing Documentation-PMH Past Medical History: No History, Except For Hx Cardiac Problems: Yes - left meniscus surgery Hx Asthma: No - Tonsilitis Hx Cancer: Yes - cervical cancer Hx Gastrointestinal Problems: No - Hx Neurological Problems: No - Left knee surgery Review of Systems All Other Systems: negative except mentioned in HPI Physical Exam Vital Signs Date Time Temp Pulse Resp B/P (MAP) Pulse Ox O2 Delivery O2 Flow Rate FiO2 01/11/20 23:04 98.2 92 18 134/68 (90) 97 Room Air Sp02 EP Interpretation: reviewed, normal General Appearance: normal inspection, well appearing, no apparent distress, alert, GCS 15, obese Head: atraumatic ENT: normal ENT inspection, hearing grossly normal, normal voice Neck: normal inspection, full range of motion, supple, no bony tend Respiratory: normal inspection, no respiratory distress, no retraction Cardiovascular #1: regular rate, rhythm, no edema Gastrointestinal: normal inspection, normal bowel sounds, non tender, soft, no guarding, no hernia Genitourinary: no CVA tenderness Musculoskeletal: normal inspection, back normal, normal range of motion Neurologic: alert, motor strength/tone normal, lead caster III-XII nml as tested, oriented x3, responsive, speech normal, normal inspection Psychiatric: normal inspection, judgement/insight normal, mood/affect normal Skin: no rash Medical Decision Making Diagnostic Impression: Primary Impression: Vaginitis ER Course Patient presented for vaginal comfort. Differential diagnosis include was not limited to dermatitis, yeast infection, among others. Patient has a benign exam and does not appear to require any imaging or laboratory testing at this time.Urinalysis did show some evidence of continued urinary infection and patient was given prescription for Keflex as well as Diflucan. The patient is advised to follow up with primary care doctor in 1-2 days. Patient is advised to return if any worsening condition or if any changes in status that are concerning. This report is dictated with [employer] dealer software which may occasionally lead to discrepancies related to use of this software. Labs Test 01/11/20 23:10 Urine Color Yellow Urine Appearance Slightly cloudy Urine pH 6 (4.5-8.0) Urine Specific Slater 1.020 (1.005-1.035) Urine Protein 2+ (NEGATIVE) Urine Glucose (UA) Negative (NEGATIVE) Urine Ketones Negative (NEGATIVE) Urine Blood 4+ (NEGATIVE) Urine Nitrite Negative (NEGATIVE) Urine Bilirubin Negative (NEGATIVE) Urine Urobilinogen 1 MG/DL (0.0-1.0) Urine Leukocyte Esterase 3+ (NEGATIVE) Urine RBC 15-20 /HPF (0 - 2) Urine WBC 10-15 /HPF (0 - 2) Urine Squamous Epithelial Cells Many /LPF (NONE/OCC) Urine Bacteria Few /HPF (NONE) Urine HCG, Qualitative Negative (NEGATIVE) Last Vital Signs Date Time Temp Pulse Resp B/P (MAP) Pulse Ox O2 Delivery O2 Flow Rate FiO2 01/11/20 23:06 98.2 84 18 134/68 97 Room Air Status: improved Disposition: HOME, SELF-CARE Condition: Stable Scripts Cephalexin* (KEFLEX*) 500 Mg Capsule 500 MG ORAL EVERY 6 HOURS, #20 CAP Prov: Ankit Sullivan MD 01/11/20 Fluconazole (FLUCONAZOLE) 100 Mg Tablet 100 MG ORAL DAILY, #1 TAB 0 Refills Prov: Ankit Sullivan MD 01/11/20 Referrals: [facility] (PCP) Ankit Sullivan MD Jan 11, 2020 23:41
[2020-01-11 23:55] LABS: COLOR,URINE YELLOW
[2020-01-11] MEDS ORDERED: CEPHALEXIN500 MG ORAL (23:56)
[2020-01-11] MEDS ORDERED: FLUCONAZOLE100 MG ORAL (23:56)
--- NOTE | 2020-01-12 00:11 | NUR ---
ER DISCHARGE NOTE: Patient is cleared to be discharged per ERMD, patient is A&Ox4, ambulatory with steady gait. Patient ID band removed, patient verbalized understanding of discharge instructions and departed with all belongings.
[2020-01-12 00:12] VITALS: BP 134/68
== END 2020-01-12 00:12 | disposition home or self-care (01) ==
LOC: EMR 23:20
DX: N76.0 Acute vaginitis (principal); Z88.8 Allergy status to other drugs, medicaments and biological substances; Z85.41 Personal history of malignant neoplasm of cervix uteri; E66.9 Obesity, unspecified
CPT/HCPCS: 81003; 81025; 87086; Z7502; 99283

== ENCOUNTER 2020-01-21 12:20 | Emergency (ER) | payer OTHER ==
[~2020-01-21] VITALS: Ht 162.6 cm; Wt 88.5 kg
[~2020-01-21 12:20] MED LIST changes: +FLUCONAZOLE100 MG ORAL
[2020-01-21 12:49] VITALS: BP 127/74
--- NOTE | 2020-01-21 12:50 | NUR ---
ED Nurse Note:pt. noted lump on her left breast ,skin is intact no pain, came for examination
[2020-01-21] MEDS ORDERED: IBUPROFEN400 MG ORAL (13:13)
--- NOTE | 2020-01-21 13:13 | Emergency Room Report ---
History of Present Illness General Chief Complaint: Skin Rash/Abscess Source: Patient Present Illness HPI 24-year-old female with history of uterine polyps and and LEEP procedure, here complaining of noticing a mobile mass in the left breast x2 days. Denies any retraction nipple, nipple discharge, asymmetry. Elicits pain upon palpation of the mass. Denies any history of breast cancer or having family history of breast cancer. Denies tobacco smoke, recent miscarriage and . Denies history of BRCA1 and BRCA2 genes. Has not yet addressed this to her primary doctor. Is sitting comfortably with stable vital signs. No retraction noted. Blood pressure appears to be symmetrical. Multiple cystic masses noted on bilateral breasts. All mobile. Denies . Denies fever chills, cough or congestion, shortness of breath. Allergies: Coded Allergies: NITROFURANTOIN (Verified Allergy, Unknown, 01/16/18) COVID-19 Screening Contact w/high risk pt: No Recent Travel to affected area: No Experienced COVID-19 symptoms?: No Patient History Past Medical History: see triage record Past Surgical History: none Pertinent Family History: none Last Menstrual Period: na Now: No Immunizations: UTD Reviewed Nursing Documentation: PMH: Agreed; PSxH: Agreed Nursing Documentation-PMH Past Medical History: No History, Except For Hx Asthma: No - Tonsilitis Hx Cancer: Yes - cervical cancer Hx Gastrointestinal Problems: No - Hx Neurological Problems: No - Left knee surgery Review of Systems All Other Systems: negative except mentioned in HPI Physical Exam Vital Signs Date Time Temp Pulse Resp B/P (MAP) Pulse Ox O2 Delivery O2 Flow Rate FiO2 01/21/20 12:23 98.4 83 18 127/74 (91) 98 Room Air Sp02 EP Interpretation: reviewed, normal General Appearance: no apparent distress, alert, GCS 15, non-toxic Head: normocephalic, atraumatic Eyes: bilateral eye normal inspection, bilateral eye PERRL ENT: hearing grossly normal, normal pharynx, no angioedema, normal voice Neck: full range of motion, supple Respiratory: chest non-tender, lungs clear, normal breath sounds, no rhonchi, speaking full sentences Cardiovascular #1: regular rate, rhythm, no edema, no murmur Gastrointestinal: non tender, soft, no mass, no rebound Genitourinary: no CVA tenderness Musculoskeletal: back normal, other - Multi-mobile cystic masses noted on left breast Neurologic: alert, motor strength/tone normal, oriented x3, sensory intact, responsive, speech normal Psychiatric: judgement/insight normal, memory normal, mood/affect normal, no suicidal/homicidal ideation Skin: no rash Lymphatic: no adenopathy Medical Decision Making THUY Attestation All my diagnosis and treatment plans were reviewed ad discussed with my supervising physician Dr. Gong Diagnostic Impression: Primary Impression: Breast mass in female ER Course 24-year-old female with history of uterine polyps and and LEEP procedure, here complaining of noticing a mobile mass in the left breast x2 days. Denies any retraction nipple, nipple discharge, asymmetry. Elicits pain upon palpation of the mass. Denies any history of breast cancer or having family history of breast cancer. Denies tobacco smoke, recent miscarriage and . Denies history of BRCA1 and BRCA2 genes. Has not yet addressed this to her primary doctor. Is sitting comfortably with stable vital signs. No retraction noted. Blood pressure appears to be symmetrical. Multiple cystic masses noted on bilateral breasts. All mobile. Denies . Denies fever chills, cough or congestion, shortness of breath. Ddx considered but are not limited to : Cellulitis, breast malignancy, benign mass, cystic mass of breast Vital signs: are WNL, pt. is afebrile H&PE are most consistent with: Breast mass ORDERS: Motrin ED INTERVENTIONS: None required at this time. DISCHARGE: At this time pt. is stable for d/c to home. Will provide printed patient care instructions, and any necessary prescriptions. Care plan and follow up instructions have been discussed with the patient prior to discharge. Advised patient to follow primary doctor for breast ultrasound to rule out malignancy. At this time patient has very little risk factors and new onset of unusual mass in breast. No further imaging or blood work noted at this time. Patient understands and agrees with this treatment. Last Vital Signs Date Time Temp Pulse Resp B/P (MAP) Pulse Ox O2 Delivery O2 Flow Rate FiO2 01/21/20 12:49 98.4 76 18 127/74 98 Room Air Disposition: HOME, SELF-CARE Condition: Stable Scripts Ibuprofen* (MOTRIN*) 400 Mg Tablet 400 MG ORAL THREE TIMES A DAY, #30 TAB 0 Refills Prov: Joann Laguerre 01/21/20 Referrals: [facility],REFERRING (PCP) Patient Instructions: Breast Ultrasound Additional Instructions: Follow-up with your primary doctor for referral for diagnostic breast ultrasound. Avoid eating food that causes more inflammation such as salt, preservative, and certain vegetables. At this time you are low risk for having malignancy however is also recommended. If worsening symptoms return to emergency room Joann Laguerre January 21, 2020 13:12
[2020-01-21 13:40] VITALS: BP 127/74
--- NOTE | 2020-01-21 13:40 | NUR ---
ER DISCHARGE NOTE: Patient is cleared to be discharged per ERMD, pt is aox4, on room air, with stable vital signs. pt was given dc and prescription instructions, pt was able to verbalize understanding. pt is able to ambulate with steady gait. pt took all belongings.
== END 2020-01-21 13:40 | disposition home or self-care (01) ==
LOC: EMR 12:50
DX: N63.20 Unspecified lump in the left breast, unspecified quadrant (principal); Z85.41 Personal history of malignant neoplasm of cervix uteri; Z88.8 Allergy status to other drugs, medicaments and biological substances
CPT/HCPCS: 99282

== ENCOUNTER 2020-03-23 18:42 | Emergency (ER) | payer MEDICAID, OTHER ==
[~2020-03-23] VITALS: Ht 162.6 cm; Wt 81.6 kg
[~2020-03-23 18:42] MED LIST changes: +IBUPROFEN400 MG ORAL
[2020-03-23 20:03] VITALS: BP 135/82
--- NOTE | 2020-03-23 20:04 | Emergency Room Report ---
History of Present Illness General Chief Complaint: Lower Extremity Injury Source: Patient Present Illness HPI 24 YO female w. Left knee surgery years ago with some swelling and intermittent episodes of lateral knee numbness after running x 2 days. She denies instability. She denies trauma or fall. She states since her surgery many years ago she has noticed that she has been having increased frequency of numbness when knee bent for too long. She denies skin color changes, erythema, bruising or warmth. She denies recent knee procedures. She denies numbness or tingling distal to the knee or proximal to the knee. She denies pain at this time. No other aggravating or relieving factors. Patient reports she is able to ambulate and bear weight on her own. She states she has been using a brace that she uses often when her knee swells which usually resolves her symptoms. 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-19 Testing performed CAD LIBRARIAN: No Patient History Past Medical History: see triage record Past Surgical History: none Pertinent Family History: none Now: No Reviewed Nursing Documentation: PMH: Agreed; PSxH: Agreed Nursing Documentation-PMH Past Medical History: No History, Except For Hx Asthma: No - Tonsilitis Hx Cancer: Yes - cervical cancer Hx Gastrointestinal Problems: No - Hx Neurological Problems: No - Left knee surgery Review of Systems All Other Systems: negative except mentioned in HPI Physical Exam Vital Signs Date Time Temp Pulse Resp B/P (MAP) Pulse Ox O2 Delivery O2 Flow Rate FiO2 03/23/20 18:52 97.0 78 20 132/91 (105) 100 Room Air Sp02 EP Interpretation: reviewed, normal General Appearance: no apparent distress, alert, GCS 15, non-toxic Head: normocephalic, atraumatic Eyes: bilateral eye normal inspection, bilateral eye PERRL ENT: hearing grossly normal, normal voice Neck: full range of motion Respiratory: lungs clear, normal breath sounds, speaking full sentences Cardiovascular #1: regular rate, rhythm, normal capillary refill Cardiovascular #2: 2+ dorsalis pedis (L) Musculoskeletal: back normal, normal range of motion, gait/station normal, other - Mild visible and palpable swelling noted to the left knee. No increased laxity upon varus or valgus stressing, negative anterior and posterior drawer signs. No erythema or warmth. Neurologic: alert, motor strength/tone normal, oriented x3, sensory intact, responsive, speech normal Psychiatric: judgement/insight normal Lymphatic: no adenopathy Medical Decision Making PA Attestation Dr. Schwartz Is my supervising Physician whom patient management has been discussed with. Diagnostic Impression: Primary Impression: Knee injury Qualified Codes: S89.92XA - Unspecified injury of left lower leg, initial encounter ER Course 24 YO female w. Left knee surgery years ago with some swelling and intermittent episodes of lateral knee numbness after running x 2 days. She denies instability. She denies trauma or fall. She states since her surgery many years ago she has noticed that she has been having increased frequency of numbness when knee bent for too long. She denies skin color changes, erythema, bruising or warmth. She denies recent knee procedures. She denies numbness or tingling distal to the knee or proximal to the knee. She denies pain at this time. No other aggravating or relieving factors. Patient reports she is able to ambulate and bear weight on her own. She states she has been using a brace that she uses often when her knee swells which usually resolves her symptoms. Ddx considered but are not limited to Fracture, dislocation, contusion, Nerve injury, popliteal aneurysm, meniscal injury, ligamental injury, gout, septic joint, Sprain/Strain/Spasm Vital signs: are WNL, pt. is afebrile H&PE are most consistent with knee strain/ overuse with hx of knee surgery. The patient is nontoxic in appearance in no acute distress does not appear to be of infectious etiology. No significant laxity on exam no obvious deformity. ORDERS: X-ray Left knee complete 3 view - negative for fx, Dislocation, or significant soft tissue injury ED INTERVENTIONS: - Motrin PO -Pt. has her own splint from home which she applies herself. pt. is NVI -I do not identify an emergent condition at this time. With current presentation , pt. is stable for close outpatient follow up and conservative treatment. D/ w pt. to return promptly to ED with worsening or new symptoms.- Pt. verbalizes' understanding and agreement with proposed treatment plan.proposed treatment plan. DISCHARGE: At this time pt. is stable for d/c to home. Will provide printed patient care instructions, and any necessary prescriptions. Care plan and follow up instructions have been discussed with the patient prior to discharge. Other X-Ray Diagnostic Results Other X-Ray Diagnostic Results : X-Ray ordered: Left knee 3 views # of Views/Limited Vs Complete: 3 View Indication: Pain EP Interpretation: Yes PA Xray: Interpretation reviewed, by supervising MD, and agrees with findings. Interpretation: no dislocation, no soft tissue swelling, no fractures Impression: No acute disease Electronically Signed by: Laura Ferguson PA-C Last Vital Signs Date Time Temp Pulse Resp B/P (MAP) Pulse Ox O2 Delivery O2 Flow Rate FiO2 03/23/20 18:52 97.0 78 20 132/91 (105) 100 Room Air Disposition: HOME, SELF-CARE Condition: Stable Scripts Naproxen Sodium (Naproxen Sodium ER) 500 Mg Tbmp.24hr 500 MG PO DAILY, #10 TAB Prov: Laura Ferguson 03/23/20 Referrals: NON PHYSICIAN (PCP) Patient Instructions: Knee Effusion, [id number], Medical Screening Exam Additional Instructions: Take medications as directed. Follow up with an [employer]YCLING COLLECTIONS DRIVER in 3-5 days, even if your symptoms have resolved. If symptoms persist MRI may be required at the discretion of your PCP or Ortho Specialist. --Please review list of primary care clinics, if you do not already have a primary care provider who can give you an Orthopedic Referral. Return sooner to ED if new symptoms occur, or current symptoms become worse. - Please note that this Emergency Department Report was dictated using [employer] programs manager technology software, occasionally this can lead to erroneous entry secondary to interpretation by the dictation equipment. Laura Ferguson Mar 23, 2020 20:04
[2020-03-23] MEDS ORDERED: NAPROXEN SODIU500 MG PO ×2 (20:07→20:19)
--- NOTE | 2020-03-24 14:16 | Diagnostic Imaging Report ---
Indication: Pain Technique: 3 views of the left knee Comparison: None Findings: There is narrowing of the lateral joint compartment. There are small osteophytes. No acute fractures. No dislocations. No suprapatellar effusion Impression:Evidence of degenerative arthropathy of the lateral joint compartment, advanced for age. No acute bony trauma
== END 2020-03-23 20:16 | disposition home or self-care (01) ==
LOC: EMR 19:33
DX: S89.92XA Unspecified injury of left lower leg, initial encounter (principal); Z85.41 Personal history of malignant neoplasm of cervix uteri; Z88.8 Allergy status to other drugs, medicaments and biological substances
CPT/HCPCS: 73562; Z7502; 99283

== ENCOUNTER 2020-04-10 04:54 | Emergency (ER) | payer MEDICAID ==
[~2020-04-10] VITALS: Ht 162.6 cm; Wt 81.6 kg
[~2020-04-10 04:54] MED LIST changes: +NAPROXEN SODIU500 MG PO
[2020-04-10] MEDS ORDERED: dexAMETHasone 10mg/ml Inj IV ONE (05:30)
[2020-04-10] MEDS ORDERED: Metoclopramide 10mg/2ml Inj IVP ONE (05:30)
[2020-04-10] MEDS ORDERED: DiphenhydrAMINE 50mg/ml Inj IVP ONE (05:30)
[2020-04-10] MEDS ORDERED: Ketorolac 30mg Inj IV ONE (05:30)
[2020-04-10] MEDS ORDERED: TRAMADOL HCL50 MG ORAL (05:40)
[2020-04-10] MEDS ORDERED: AMITRIPTYLINE25 MG ORAL (05:40)
--- NOTE | 2020-04-10 05:41 | Emergency Room Report ---
History of Present Illness General Chief Complaint: Lower Extremity Injury Source: Patient, Medical Record Present Illness HPI This is a 24-year-old female with history of migraine. She presents with chief complaint of headache. Is been ongoing for the last 5 days. Usually get better with Excedrin but not getting better. She is not getting much sleep. Is throbbing. Has nausea but no vomiting. Pain is diffuse in nature. Pain is 8 out of 10. No fever chills but no focal deficit. Her other complaint is that she is having numbness to her left leg from the knee to the foot. She also has numbness to her right foot. There is no trauma. Nothing made it better. Nothing made it worse. This been ongoing for the last day. No back pain. No focal deficit. 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-19 Testing performed DIRECTOR OF MARKET RESEARCH: No Patient History Past Medical History: see triage record, old chart reviewed Past Surgical History: none Pertinent Family History: none Social History: Denies: smoking Last Menstrual Period: 03/29/2020 Now: No Immunizations: other Reviewed Nursing Documentation: PMH: Agreed; PSxH: Agreed Nursing Documentation-PMH Hx Asthma: No - Tonsilitis Hx Cancer: Yes - cervical cancer Hx Gastrointestinal Problems: No - Hx Neurological Problems: No - Left knee surgery Review of Systems Eye: Denies: eye pain, blurred vision ENT: Denies: ear pain, nose congestion, throat swelling Respiratory: Denies: cough, shortness of breath Cardiovascular: Denies: chest pain, palpitations Gastrointestinal: Denies: abdominal pain, diarrhea, nausea, vomiting Musculoskeletal: Denies: back pain, joint pain Skin: Denies: rash Neurological: Reports: headache, numbness Endocrine: Denies: increased thirst, increased urine Hematologic/Lymphatic: Denies: easy bruising All Other Systems: negative except mentioned in HPI Physical Exam Vital Signs Date Time Temp Pulse Resp B/P (MAP) Pulse Ox O2 Delivery O2 Flow Rate FiO2 04/10/20 05:05 98.6 60 16 124/83 (97) 98 Room Air Vitals normal Sp02 EP Interpretation: reviewed, normal General Appearance: well appearing, no apparent distress, alert Head: normocephalic, atraumatic Eyes: bilateral eye PERRL, bilateral eye EOMI ENT: hearing grossly normal, normal pharynx Neck: full range of motion, supple, no meningismus Respiratory: chest non-tender, lungs clear, normal breath sounds Cardiovascular #1: regular rate, rhythm, no murmur Gastrointestinal: normal bowel sounds, non tender, no mass, no organomegaly, no bruit, non-distended Musculoskeletal: back normal, normal range of motion, gait/station normal Psychiatric: mood/affect normal Medical Decision Making Diagnostic Impression: Primary Impression: Headache Qualified Codes: R51 - Headache Additional Impression: Paresthesia of both lower extremities ER Course Patient presents with headache. No focal deficit. No red flags indicate this is meningitis, bleed or neoplastic process. She may benefit from a neurology consult. Her paresthesia may be secondary to her migraine. This could also be secondary to multiple sclerosis or pinched nerve. She may need an MRI. Work- up can be done as an outpatient. Last Vital Signs Date Time Temp Pulse Resp B/P (MAP) Pulse Ox O2 Delivery O2 Flow Rate FiO2 04/10/20 05:05 98.6 60 16 124/83 (97) 98 Room Air Status: improved Disposition: HOME, SELF-CARE Condition: Stable Scripts Tramadol Hcl* (ULTRAM*) 50 Mg Tablet 50 MG ORAL Q6H PRN for For Pain, #12 TAB 0 Refills Prov: Darian Garcia MD 04/10/20 Amitriptyline HCl (ELAVIL*) 25 Mg Tablet 25 MG ORAL BEDTIME, #30 TAB Prov: Darian Garcia MD 04/10/20 Referrals: [facility],REFERR[facility] (PCP) Additional Instructions: Follow-up with your doctor in a week. You may benefit from a neurology consult. Return if symptoms worsen. Darian Garcia MD Apr 10, 2020 05:41
[2020-04-10 06:08] VITALS: BP 121/81
== END 2020-04-10 06:09 | disposition home or self-care (01) ==
LOC: EMR 05:15
DX: R51 Headache (principal); R20.2 Paresthesia of skin; Z85.41 Personal history of malignant neoplasm of cervix uteri; Z88.8 Allergy status to other drugs, medicaments and biological substances
CPT/HCPCS: 96374; 96375; J1200; J1885; J2405; J2765; Z7502; 99284

== ENCOUNTER 2020-04-15 02:14 | Emergency (ER) | payer MEDICAID ==
[~2020-04-15] VITALS: Ht 162.6 cm; Wt 81.6 kg
[~2020-04-15 02:14] MED LIST changes: +AMITRIPTYLINE25 MG ORAL
[2020-04-15 02:26] VITALS: BP 119/75
--- NOTE | 2020-04-15 02:26 | NUR ---
ED Nurse Note: Pt ambulated into ed from home [place] x 4 days with no relief. Pt states she was prescribed amitriptyline during last visit but medicaton has been ineffective. Pt describes pain as "severe head pressure". ERMD at bedside. Pt moved from RME to Tx 1 per ERMD.
[2020-04-15] MEDS ORDERED: dexAMETHasone 10mg/ml Inj IV ONE (02:30)
--- NOTE | 2020-04-15 02:33 | Emergency Room Report ---
History of Present Illness General Chief Complaint: Headache Source: Patient Present Illness HPI This is a 24-year-old female with a history of migraine. She presents with chief complaint of headache. She was seen here few days ago. I put her on amitriptyline to see if that helped and is not helping. She said is actually getting worse. Her headaches are getting worse. She felt nauseous but no vomiting. Also now with abdominal cramps and diarrhea. [place] weak. Denies any fever chills but denies any urinary complaint. Pain is throbbing in nature. Worse with lights. Worse with noise. Pain is 9 out of 10. 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-19 Testing performed COAL WASHER: No Patient History Past Medical History: see triage record, old chart reviewed Past Surgical History: none Pertinent Family History: none Social History: Denies: smoking Last Menstrual Period: 03/29/2020 Now: No Immunizations: other Reviewed Nursing Documentation: PMH: Agreed; PSxH: Agreed Nursing Documentation-PMH Hx Asthma: No - Tonsilitis Hx Cancer: Yes - cervical cancer Hx Gastrointestinal Problems: No - Hx Neurological Problems: No - Left knee surgery Review of Systems Constitutional: Reports: malaise Eye: Denies: eye pain, blurred vision ENT: Denies: ear pain, nose congestion, throat swelling Respiratory: Denies: cough, shortness of breath Cardiovascular: Denies: chest pain, palpitations Gastrointestinal: Reports: abdominal pain, diarrhea, nausea; Denies: vomiting Musculoskeletal: Denies: back pain, joint pain Skin: Denies: rash Neurological: Reports: headache; Denies: numbness Endocrine: Denies: increased thirst, increased urine Hematologic/Lymphatic: Denies: easy bruising All Other Systems: negative except mentioned in HPI Physical Exam Vital Signs Date Time Temp Pulse Resp B/P (MAP) Pulse Ox O2 Delivery O2 Flow Rate FiO2 04/15/20 02:16 99.0 98 19 119/75 (90) 97 Room Air Vitals normal Sp02 EP Interpretation: reviewed, normal General Appearance: well appearing, no apparent distress, alert Head: normocephalic, atraumatic Eyes: bilateral eye PERRL, bilateral eye EOMI ENT: hearing grossly normal, normal pharynx Neck: full range of motion, supple, no meningismus Respiratory: chest non-tender, lungs clear, normal breath sounds Cardiovascular #1: regular rate, rhythm, no murmur Gastrointestinal: normal bowel sounds, non tender, no mass, no organomegaly, no bruit, non-distended Musculoskeletal: back normal, normal range of motion, gait/station normal Psychiatric: mood/affect normal Medical Decision Making Diagnostic Impression: Primary Impression: Headache Qualified Codes: R51 - Headache Additional Impression: Diarrhea Qualified Codes: R19.7 - Diarrhea, unspecified ER Course This patient presents with headache and abdominal pain with diarrhea. This may be related to her migraine headache. She may also has a viral infection. Covid testing was negative. Patient felt better now. Will discharge home. This patient was evaluated in the context of the global COVID-19 pandemic, which necessitated consideration that the patient might be at risk for infection with the [id number] virus that causes COVID-19. Institutional protocols and algorithms that pertain to the evaluation of patients at risk for COVID-19 and the state of rapid change based on information released by multiple regulatory bodies including the CDC and federal and state organizations. These policies and algorithms were followed during the patient' s care in the ED. CT/MRI/US Diagnostic Results CT/MRI/US Diagnostic Results : Imaging Test Ordered: CT head Impression Read by radiologist. Negative. Last Vital Signs Date Time Temp Pulse Resp B/P (MAP) Pulse Ox O2 Delivery O2 Flow Rate FiO2 04/15/20 02:16 99.0 98 19 119/75 (90) 97 Room Air Status: improved Disposition: HOME, SELF-CARE Condition: Stable Scripts Acetamin/Butalbital/Caffeine* (FIORICET*) 1 Ea Tab 1 TAB ORAL Q6H, #20 TAB 0 Refills Prov: Darian Garcia MD 04/15/20 Patient Instructions: Migraine Headache Additional Instructions: Follow-up with your doctor in a week. You may benefit from referral to see a neurologist. Return if worse. Darian Garcia MD Apr 15, 2020 02:33
[2020-04-15] MEDS ORDERED: HYDROmorphone 1mg/ml Carpuject IVP ONE (02:45)
--- NOTE | 2020-04-15 02:45 | NUR ---
ED Nurse Note: COVID swab collected and sent to lab
--- NOTE | 2020-04-15 02:45 | NUR ---
ED Nurse Note: all medications administered, pt tolerated well no ss of distress noted. will continue to monitor.
--- NOTE | 2020-04-15 03:20 | NUR ---
ED Nurse Note: pt taken to CT in stable condition, VSS no ss of distress noted. Will continue to monitor.
--- NOTE | 2020-04-15 03:37 | NUR ---
ED Nurse Note: pt returned from CT in stable condition VSS no ss of distress noted.
--- NOTE | 2020-04-15 04:03 | Diagnostic Imaging Report ---
EXAM: CT Head Without Intravenous Contrast CLINICAL HISTORY: PAIN TECHNIQUE: Axial computed tomography images of the head/brain without intravenous contrast. CTDI is 43 mGy and DLP is 840 mGy-cm. One or more of the following dose reduction techniques were used: automated exposure control, adjustment of the mA and/or kV according to patient size, use of iterative reconstruction technique. COMPARISON: No relevant prior studies available. FINDINGS: Brain: No hemorrhage or mass effect. Ventricles: No hydrocephalus. Bones/joints: Unremarkable. Soft tissues: Unremarkable. Sinuses: Unremarkable. Mastoid air cells: Clear. IMPRESSION: No acute hemorrhage, hydrocephalus, or mass effect.
[2020-04-15] MEDS ORDERED: Ketorolac 30mg Inj IV ONE (04:30)
[2020-04-15] MEDS ORDERED: FIORICET1 EA ORAL (04:38)
[2020-04-15 04:51] VITALS: BP 121/69
--- NOTE | 2020-04-15 04:51 | NUR ---
ER DISCHARGE NOTE: Patient is cleared to be discharged home per ERMD, pt is aox4, 99% on room air, with stable vital signs. pt was given dc and prescription instructions, pt was able to verbalize understanding, pt id band and iv site removed without complications. pt is able to ambulate with steady gait. pt took all belongings. pt verbalized understanding of discharge instructions.
== END 2020-04-15 04:51 | disposition home or self-care (01) ==
LOC: EMR 02:30
DX: R51 Headache (principal); R19.7 Diarrhea, unspecified; R10.9 Unspecified abdominal pain; Z88.8 Allergy status to other drugs, medicaments and biological substances; Z85.41 Personal history of malignant neoplasm of cervix uteri
CPT/HCPCS: 70450; 96361; 96374; 96375; J1170; J2405; J7030; U0002; Z7502; 99284

== ENCOUNTER 2020-06-26 09:48 | Emergency (ER) | payer MEDICAID ==
[~2020-06-26] VITALS: Ht 162.6 cm; Wt 81.6 kg
[~2020-06-26 09:48] MED LIST changes: +FIORICET1 EA ORAL
[2020-06-26 10:06] VITALS: BP 140/88
--- NOTE | 2020-06-26 10:08 | NUR ---
ED Nurse Note: Patient walked in to ER c/o vaginal pain, preassure since yestrday, denyed vaginal discharge. Patient AAO x4, VSS at this time.
[2020-06-26 10:36] LABS: APPEARANCE,URINE CLEAR; BILIRUBIN, URINE NEGATIVE (NEGATIVE); COLOR,URINE PALE YELLOW; GLUCOSE, URINE (UA) NEGATIVE (NEGATIVE); KETONES,URINE NEGATIVE (NEGATIVE); LEUKOCYTE ESTERASE ,URINE 3+ (NEGATIVE); NITRITE,URINE NEGATIVE (NEGATIVE); PH,URINE 5 (4.5-8.0); PROTEIN,URINE NEGATIVE (NEGATIVE); UROBILINOGEN,URINE NORMAL MG/DL (0.0-1.0)
[2020-06-26] MEDS ORDERED: CEPHALEXIN500 MG ORAL (10:48)
[2020-06-26 11:24] VITALS: BP 140/88
--- NOTE | 2020-06-26 14:15 | Emergency Room Report ---
History of Present Illness General Chief Complaint: Female Urogenital Problems Present Illness HPI 25-year-old female here with suprapubic "fullness" and urinary frequency for the past 24 hours. Patient has had a urinary tract infection in the past but does not recall whether her symptoms were similar to this. She is sexually active and does not use condoms but denies any vaginal discharge. No other abdominal pain. 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 Patient History Last Menstrual Period: 06/01/2020 Now: No Nursing Documentation-PMH Hx Asthma: No - Tonsilitis Hx Cancer: Yes - cervical cancer Hx Gastrointestinal Problems: No - Hx Neurological Problems: No - Left knee surgery Review of Systems All Other Systems: negative except mentioned in HPI Physical Exam Vital Signs Date Time Temp Pulse Resp B/P (MAP) Pulse Ox O2 Delivery O2 Flow Rate FiO2 06/26/20 09:58 97.9 98 16 140/88 (105) 99 Room Air Sp02 EP Interpretation: reviewed, normal General Appearance: no apparent distress, alert, GCS 15, non-toxic Head: normocephalic, atraumatic Eyes: bilateral eye normal inspection, bilateral eye PERRL ENT: hearing grossly normal, normal pharynx, no angioedema, normal voice Neck: full range of motion, supple/symm/no masses Respiratory: chest non-tender, lungs clear, normal breath sounds, speaking full sentences Cardiovascular #1: regular rate, rhythm, no edema Cardiovascular #2: 2+ carotid (R), 2+ carotid (L), 2+ radial (R), 2+ radial (L), 2+ dorsalis pedis (R), 2+ dorsalis pedis (L) Gastrointestinal: normal bowel sounds, non tender, soft, non-distended, no guarding, no rebound, other - Very mild suprapubic tenderness on palpation. Negative Rovsing sign, negative Melgoza sign. No pain in the right lower quadrant Rectal: deferred Genitourinary: normal inspection, no CVA tenderness Musculoskeletal: back normal, normal range of motion, gait/station normal, non-tender Neurologic: alert, motor strength/tone normal, oriented x3, sensory intact, responsive, speech normal Psychiatric: judgement/insight normal, memory normal, mood/affect normal, no suicidal/homicidal ideation Lymphatic: no adenopathy Medical Decision Making Diagnostic Impression: Primary Impression: UTI (urinary tract infection) ER Course Laboratory Tests Test 06/26/20 10:09 Urine Color Pale yellow Urine Appearance Clear Urine pH 5 (4.5-8.0) Urine Specific [place] 1.020 (1.005-1.035) Urine Protein Negative (NEGATIVE) Urine Glucose (UA) Negative (NEGATIVE) Urine Ketones Negative (NEGATIVE) Urine Blood 1+ (NEGATIVE) H Urine Nitrite Negative (NEGATIVE) Urine Bilirubin Negative (NEGATIVE) Urine Urobilinogen Normal MG/DL (0.0-1.0) Urine Leukocyte Esterase 3+ (NEGATIVE) H Urine RBC 0-2 /HPF (0 - 2) Urine WBC 2-4 /HPF (0 - 2) Urine Squamous Epithelial Cells Occasional /LPF Urine Bacteria Occasional /HPF (NONE) Urine HCG, Qualitative Negative (NEGATIVE) 25-year-old female here with urinary frequency and mild suprapubic fullness. Patient was hemodynamically stable in the emergency department. She had a benign physical examination. Urinalysis showed occasional bacteria with 2-4 white blood cells and 3+ leukocyte esterase. She was given a prescription for Keflex and told to follow-up with her primary care provider. Told to come back to the emergency department she has any worsening symptoms. Discharged in stable condition. Last Vital Signs Date Time Temp Pulse Resp B/P (MAP) Pulse Ox O2 Delivery O2 Flow Rate FiO2 06/26/20 11:24 97.9 98 16 140/88 99 Room Air Disposition: HOME, SELF-CARE Condition: Stable Scripts Cephalexin* (KEFLEX*) 500 Mg Capsule 500 MG ORAL EVERY 12 HOURS, #14 CAP 0 Refills Prov: Jose Alejandro Higgins M.D. 06/26/20 Referrals: NOT CHOSEN DAVID/,REFERRING (PCP) [facility] Patient Instructions: Urinary Tract Infection Additional Instructions: Please follow-up with your primary care doctor in the next 1 to 3 days to discuss this emergency department visit and for reevaluation. If you have any ne w or worsening symptoms please return to the emergency department for reevaluation. Jose Alejandro Higgins M.D. Jun 26, 2020 14:15
== END 2020-06-26 11:25 | disposition home or self-care (01) ==
LOC: EMR 10:30
DX: N39.0 Urinary tract infection, site not specified (principal); Z85.41 Personal history of malignant neoplasm of cervix uteri; Z88.8 Allergy status to other drugs, medicaments and biological substances
CPT/HCPCS: 81003; 81025; Z7502; 99282

== ENCOUNTER 2020-09-12 13:10 | Emergency (ER) | payer MEDICAID ==
[~2020-09-12] VITALS: Ht 162.6 cm; Wt 86.2 kg
--- NOTE | 2020-09-12 13:30 | NUR ---
ED Nurse Note: Pt ambulated to ed c/o bodyaches, chest pain, cough, chills x 2 days. Pt is AOx4, calm and cooperative to care, VSS, on RA, afebrile on triage.
[2020-09-12 13:47] VITALS: BP 122/69
--- NOTE | 2020-09-12 14:40 | Emergency Room Report ---
History of Present Illness General Chief Complaint: General Complaint Source: Patient Present Illness HPI 25-year-old female presents to the emergency department complaining of chills, cough, body aches and 5 out of 10 severity sore throat with nasal congestion and rhinorrhea x2 days. Patient reports having ill contacts with URI symptoms. She denies fevers. She denies sputum production. Patient reports history of asthma and requiring inhaler infrequently in the past. Patient denies wheezing at this time. She She reports painful persistent cough. She denies chest pain when not coughing or shortness of breath. She denies or suspicion of . She denies significant past medical history other than previously having tonsillitis and cervical cancer which did require LEEP procedure. No other aggravating or relieving factors at this time. 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 COVID-19 Screening: Negative COVID-19 COVID-19 Testing Source: nasal Patient History Past Medical History: see triage record Past Surgical History: none Pertinent Family History: none Last Menstrual Period: 08/08/2020 Now: No Reviewed Nursing Documentation: PMH: Agreed; PSxH: Agreed Nursing Documentation-PMH Past Medical History: No History, Except For Hx Asthma: No - Tonsilitis Hx Cancer: Yes - cervical cancer Hx Gastrointestinal Problems: No - Hx Neurological Problems: No - Left knee surgery Review of Systems All Other Systems: negative except mentioned in HPI Physical Exam Vital Signs Date Time Temp Pulse Resp B/P (MAP) Pulse Ox O2 Delivery O2 Flow Rate FiO2 09/12/20 13:13 97.7 88 15 122/69 (86) 100 Room Air Sp02 EP Interpretation: reviewed, normal General Appearance: no apparent distress, alert, GCS 15, non-toxic Head: normocephalic, atraumatic Eyes: bilateral eye normal inspection, bilateral eye PERRL ENT: hearing grossly normal, normal voice, uvula midline, moist mucus membranes, pharyngeal erythema, other - NO tonsillar exudates Neck: full range of motion Respiratory: chest non-tender, lungs clear, normal breath sounds, no respiratory distress, no accessory muscle use, no wheezing, speaking full sentences Cardiovascular #1: regular rate, rhythm Musculoskeletal: normal range of motion, gait/station normal, non-tender Neurologic: alert, motor strength/tone normal, oriented x3, sensory intact, responsive, speech normal Psychiatric: judgement/insight normal Skin: no rash, normal color Lymphatic: no adenopathy Medical Decision Making PA Attestation Dr. Hendrickson is my supervising Physician whom patient management has been discussed with. Diagnostic Impression: Primary Impression: Viral upper respiratory tract infection with cough ER Course 25-year-old female presents to the emergency department complaining of chills, cough, body aches and 5 out of 10 severity sore throat with nasal congestion and rhinorrhea x2 days. Patient reports having ill contacts with URI symptoms. She denies fevers. She denies sputum production. Patient reports history of asthma and requiring inhaler infrequently in the past. Patient denies wheezing at this time. She She reports painful persistent cough. She denies chest pain when not coughing or shortness of breath. She denies or suspicion of . She denies significant past medical history other than previously having tonsillitis and cervical cancer which did require LEEP procedure. No other aggravating or relieving factors at this time. Ddx considered but are not limited to URI, pneumonia, PE, strep pharyngitis, meningitis, COVID-19 Vital signs: Pt. is afebrile, the remaining VS are WNL H&PE are most consistent with URI- no meningeal signs, oropharynx is not involved, no evidence of bacterial infection at this time. Clinically, COVID-19 acute viral syndrome suspected. Patient is nontoxic in appearance in no acute distress not demonstrating any increased respiratory effort. ORDERS: none required at this time, the diagnosis is clinical EK BPM NSR ED INTERVENTIONS: None required at this time. --PT. EDUCATION: Discussed antibiotic resistance with inappropriate prescribing of antibiotics for viral illnesses. Discussed signs and symptoms to indicate viral illness versus bacterial illness. DISCHARGE: At this time pt. is stable for d/c to home. Will provide printed patient care instructions, and any necessary prescriptions. Care plan and follow up instructions have been discussed with the patient prior to discharge. EKG Diagnostic Results Troponin ordered: No - Viral syndrome + Cough, no cardiac hx. Rate: normal - 83 Rhythm: NSR ST Segments: no acute changes ASA given to the pt in ED: No PA Scribe Text This Interpretation was scribed by THUY Ferguson. Last Vital Signs Date Time Temp Pulse Resp B/P (MAP) Pulse Ox O2 Delivery O2 Flow Rate FiO2 09/12/20 13:47 97.7 15 122/69 100 Room Air 09/12/20 13:47 88 Disposition: HOME, SELF-CARE Condition: Stable Scripts Albuterol Sulfate* (Albuterol Sulfate Hfa*) 8.5 Gm Hfa.aer.ad 2 PUFF INH Q6H, #1 INH Prov: Laura Ferguson 09/12/20 Ibuprofen* (MOTRIN*) 600 Mg Tablet 600 MG ORAL THREE TIMES A DAY, #30 TAB Prov: Laura Ferguson 09/12/20 Codeine/Promethazine Hcl* (PROMETHAZINE-CODEINE SYRUP*) 118 Ml Syrup 5 ML ORAL Q6H PRN for For Cough, #120 ML 0 Refills Prov: Laura Ferguson 09/12/20 Referrals: PREFERRED [facility],REFERRING (PCP) Departure Forms: Return to Work Return to Work Date: Sep 16, 2020 Return to Full Activity: Sep 16, 2020 Work Restrictions: None Patient Instructions: Upper Respiratory Infection, Adult, [id number] Additional Instructions: ~ ~ An emergent medical condition has not been identified based on this patients presentation, exam and any necessary testing/imaging. The patient is determined to be stable for outpatient follow-up and management of symptoms by a primary care provider. STATUS: Stable for outpatient COVID-19 Testing and management. Take medications as directed. Follow up with a Primary Care Provider in 3-5 days, even if your symptoms have resolved. --Please review list of primary care clinics, if you do not already have a primary care provider Return sooner to ED if new symptoms occur, or current symptoms become worse. Do not drink alcohol, drive, or operate heavy machinery while taking Cough Syrup as this may cause drowsiness. - Please note that this Emergency Department Report was dictated using [employer] director technology software, occasionally this can lead to erroneous entry secondary to interpretation by the dictation equipment. Laura Ferguson Sep 12, 2020 14:39
[2020-09-12] MEDS ORDERED: IBUPROFEN600 M1 ORAL (14:41)
[2020-09-12] MEDS ORDERED: PROMETHAZINE-C118 M1 ORAL (14:41)
[2020-09-12] MEDS ORDERED: ALBUTEROL SULF8.5 G1 INH (14:41)
[2020-09-12 14:55] VITALS: BP 126/70
== END 2020-09-12 14:55 | disposition home or self-care (01) ==
LOC: EMR 13:46
DX: J06.9 Acute upper respiratory infection, unspecified (principal); R05 Cough; Z85.41 Personal history of malignant neoplasm of cervix uteri; Z88.8 Allergy status to other drugs, medicaments and biological substances
CPT/HCPCS: 93005; Z7502; 99282

== ENCOUNTER → 2020-09-27 | Emergency (ER) | payer OTHER, MEDICAID ==
[~2020-09-27] VITALS: Ht 162.6 cm; Wt 86.2 kg
[~2020-09-27] MED LIST changes: +ALBUTEROL SULF8.5 G1 INH; +Albuterol ud Inhalation HHN ONE; +DECADRON6 MG PO; +IBUPROFEN600 M1 ORAL; +Ipratropium 0.02% Inh Soln 2.5ml UD HHN ONE; +PROMETHAZINE-C118 M1 ORAL; +ZITHROMAX250 MG ORAL
--- NOTE | 2020-09-27 23:17 | NUR ---
ED Nurse Note: Pt walked into the ed due to Increase sob and cough. Pt stated, she is got tested postive for covid around 08/23/2020; shabbir got tested again today and she is wasiting fot the result. pt is on monitor; her vitals are stable.
[2020-09-27 23:33] VITALS: BP 135/72
--- NOTE | 2020-09-27 23:41 | Emergency Room Report ---
History of Present Illness General Chief Complaint: Upper Respiratory Illness Source: Patient Present Illness HPI This a 25-year-old female with a history of asthma. She presents with chief complaint of cough and shortness of breath. She tested for positive for Covid end of August. She was doing well until today. She woke up coughing and wheezing. Better with her inhaler. Worse with inspiration. No nausea no vomiting. Denies any fever chills. Coughing is nonproductive nature. 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 COVID-19 Screening: PUI COVID-19 COVID-19 Testing Source: send out Patient History Past Medical History: see triage record, old chart reviewed, asthma Past Surgical History: none Pertinent Family History: none Social History: Denies: smoking Last Menstrual Period: august 09 Immunizations: other Reviewed Nursing Documentation: PMH: Agreed; PSxH: Agreed Nursing Documentation-PMH Past Medical History: No History, Except For Hx Asthma: No - Tonsilitis Hx Cancer: Yes - cervical cancer Hx Gastrointestinal Problems: No - Hx Neurological Problems: No - Left knee surgery Review of Systems Eye: Denies: eye pain, blurred vision ENT: Denies: ear pain, nose congestion, throat swelling Respiratory: Reports: cough, shortness of breath Cardiovascular: Denies: chest pain, palpitations Gastrointestinal: Denies: abdominal pain, diarrhea, nausea, vomiting Musculoskeletal: Denies: back pain, joint pain Skin: Denies: rash Neurological: Denies: headache, numbness Endocrine: Denies: increased thirst, increased urine Hematologic/Lymphatic: Denies: easy bruising All Other Systems: negative except mentioned in HPI Physical Exam Vital Signs Date Time Temp Pulse Resp B/P (MAP) Pulse Ox O2 Delivery O2 Flow Rate FiO2 09/27/20 23:03 99.3 108 18 138/84 (102) 97 Room Air Vitals unremarkable Sp02 EP Interpretation: reviewed, normal General Appearance: well appearing, no apparent distress, alert, obese Head: normocephalic, atraumatic Eyes: bilateral eye PERRL, bilateral eye EOMI ENT: hearing grossly normal, normal pharynx Neck: full range of motion, supple, no meningismus Respiratory: chest non-tender, lungs clear, normal breath sounds, other - Coughing with inspiration Cardiovascular #1: regular rate, rhythm, no murmur Gastrointestinal: normal bowel sounds, non tender, no mass, no organomegaly, no bruit, non-distended Musculoskeletal: back normal, normal range of motion, gait/station normal Psychiatric: mood/affect normal Medical Decision Making Diagnostic Impression: Primary Impression: Acute bronchitis due to COVID-19 virus ER Course Patient with symptom consistent with bronchitis from Covid infection. No evidence of respiratory stress. Oxygenation is normal. Better with breathing treatment. Will discharge home. Chest X-Ray Diagnostic Results Chest X-Ray Diagnostic Results : Chest X-Ray Ordered: Yes # of Views/Limited/Complete: 1 View Indication: Shortness of Breath EP Interpretation: Yes Interpretation: no consolidation, no effusion, no pneumothorax, no acute cardiopulmonary disease Impression: No acute disease Electronically Signed by: Darian Garcia MD Last Vital Signs Date Time Temp Pulse Resp B/P (MAP) Pulse Ox O2 Delivery O2 Flow Rate FiO2 09/27/20 23:33 102 21 Room Air 09/27/20 23:33 98.7 135/72 100 Status: improved Disposition: HOME, SELF-CARE Condition: Stable Scripts Dexamethasone (Decadron) 6 Mg Tablet 6 MG PO DAILY, #7 TAB Prov: Darian Garcia MD 09/27/20 Azithromycin* (ZITHROMAX*) 250 Mg Tablet 250 MG ORAL DAILY, #6 TAB 0 Refills Take two tables once daily for 1 day, then one tablet once daily for 4 days. Prov: Darian Garcia MD 09/27/20 Referrals: NON PHYSICIAN (PCP) Patient Instructions: Upper Respiratory Infection, Adult Additional Instructions: Follow-up with your doctor in 7 days. Return if symptoms worsen. Darian Garcia MD Sep 27, 2020 23:41
[2020-09-28 00:30] VITALS: BP 135/72
--- NOTE | 2020-09-28 14:56 | Diagnostic Imaging Report ---
Indication: Shortness of breath Technique: One view of the chest Comparison: 10/15/2019 Findings: Lungs and pleural spaces are clear. Heart size is normal. Previously demonstrated parenchymal opacities are no longer evident Impression: No acute process
== END | disposition home or self-care (01) ==
LOC: EMR 23:09
DX: U07.1 COVID-19 (principal); J20.8 Acute bronchitis due to other specified organisms; J45.909 Unspecified asthma, uncomplicated; Z88.8 Allergy status to other drugs, medicaments and biological substances; Z85.41 Personal history of malignant neoplasm of cervix uteri
CPT/HCPCS: 71045; 94640; 99283; J7512

== ENCOUNTER 2020-10-07 10:25 | Emergency (ER) | payer MEDICAID ==
[~2020-10-07] VITALS: Ht 162.6 cm; Wt 86.2 kg
[~2020-10-07 10:25] MED LIST changes: -Albuterol ud Inhalation HHN ONE; -Ipratropium 0.02% Inh Soln 2.5ml UD HHN ONE
[2020-10-07] MEDS ORDERED: AUGMENTIN 875-1 EAC1 ORAL (10:58)
[2020-10-07] MEDS ORDERED: IBUPROFEN600 M1 ORAL (10:58)
[2020-10-07 11:00] VITALS: BP 105/78
--- NOTE | 2020-10-07 11:00 | NUR ---
ER DISCHARGE NOTE: Patient is cleared to be discharged per ERMD, pt is aox4, on room air, with stable vital signs. pt was given dc and prescription instructions, pt was able to verbalize understanding, pt id band removed without complications. pt is able to ambulate with steady gait. pt took all belongings.
--- NOTE | 2020-10-07 11:03 | NUR ---
ED Nurse Note:pt from home with c/o as in triage. states her cough and covid s/s are improved from last week after taking dexamethasone course. relates no fever at this time. relates jaw just feels tense.
--- NOTE | 2020-10-08 10:07 | Emergency Room Report ---
History of Present Illness General Chief Complaint: Pain Source: Patient Present Illness HPI 25-year-old female presents for evaluation. Notes she is having pain below her jaw. Started a few days ago. Pain is dull, 9 out of 10, nonradiating. Notes pain to her neck as well. Denies fevers or chills. Denies cough. Recently diagnosed with Covid. Had been prescribed medications. Was seen here 10 days prior to arrival. No other aggravating relieving factors. 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 COVID-19 Screening: Positive COVID-19 COVID-19 Testing Source: sep 12 Patient History Past Medical History: other - cervical cancer Past Surgical History: none Pertinent Family History: none Social History: Denies: smoking, alcohol use, drug use Last Menstrual Period: now Now: No Immunizations: UTD Reviewed Nursing Documentation: PMH: Agreed; PSxH: Agreed Nursing Documentation-PMH Past Medical History: No History, Except For Hx Asthma: No - Tonsilitis Hx Cancer: Yes - cervical cancer Hx Gastrointestinal Problems: No - Hx Neurological Problems: No - Left knee surgery Review of Systems All Other Systems: negative except mentioned in HPI Physical Exam Vital Signs Date Time Temp Pulse Resp B/P (MAP) Pulse Ox O2 Delivery O2 Flow Rate FiO2 10/07/20 10:31 98.2 90 20 105/78 (87) 97 Room Air Sp02 EP Interpretation: reviewed, normal General Appearance: no apparent distress, alert, GCS 15, non-toxic Head: normocephalic, atraumatic Eyes: bilateral eye normal inspection, bilateral eye PERRL ENT: hearing grossly normal, normal pharynx, no angioedema, normal voice Neck: full range of motion, supple, no meningismus, supple/symm/no masses Respiratory: chest non-tender, lungs clear, normal breath sounds, speaking full sentences Cardiovascular #1: regular rate, rhythm, no edema Cardiovascular #2: 2+ carotid (R), 2+ carotid (L), 2+ radial (R), 2+ radial (L), 2+ dorsalis pedis (R), 2+ dorsalis pedis (L) Gastrointestinal: normal bowel sounds, non tender, soft, non-distended, no guarding, no rebound Rectal: deferred Genitourinary: normal inspection, no CVA tenderness Musculoskeletal: back normal, normal range of motion, gait/station normal, non- tender Neurologic: alert, motor strength/tone normal, oriented x3, sensory intact, responsive, speech normal Psychiatric: judgement/insight normal, memory normal, mood/affect normal, no suicidal/homicidal ideation Reflexes: 3+ bicep (R), 3+ bicep (L), 3+ tricep (R), 3+ tricep (L), 3+ knee (R), 3+ knee (L) Lymphatic: adenopathy - submandibular LAD Medical Decision Making Diagnostic Impression: Primary Impression: Jaw pain ER Course Hospital Course 25-year-old female presents with jaw pain. Recently diagnosed and treated for Covid Differential diagnoses include: URI, pharyngitis, otitis media, asthma Clinical course Patient placed on stretcher. After initial history, physical exam reveals a female in no acute distress. There is some tenderness in the submandibular region bilaterally. Full jaw opening noted. No nuchal rigidity. Cloudiness in bilateral TM. No pharyngeal erythema. Lungs clear. Remainder of exam unremarkable. I discussed findings with patient. Multiple considerations including unspecified lymphadenopathy due to an upper respiratory infection or other upper airway infection. Lower considerations include meningitis however patient has no headache no fever and no neck stiffness. I discussed these findings with patient. Options included CT with contrast of neck as well as LP. Patient wanted to defer these options and start conservative treatment. Will discharge with antibiotics. If symptoms were not to improve or get worse patient instructed to come back to ED Diagnosis - jaw pain Stable and discharged home. Instructed to followup with PMD. Return to ED if symptoms recur or worsen Last Vital Signs Date Time Temp Pulse Resp B/P (MAP) Pulse Ox O2 Delivery O2 Flow Rate FiO2 10/07/20 11:00 98.2 20 105/78 97 Room Air 10/07/20 10:31 90 Status: improved Disposition: HOME, SELF-CARE Condition: Stable Scripts Ibuprofen* (MOTRIN*) 600 Mg Tablet 600 MG ORAL Q8H PRN for FOR PAIN, #30 TAB 0 Refills Prov: Tiburcio Hendrickson MD 10/07/20 Amoxicillin/Potassium Clav 875-125* (AUGMENTIN 875-125 TABLET*) 1 Each Tablet 1 TAB ORAL TWICE A DAY, #14 TAB Prov: Tiburcio Hendrickson MD 10/07/20 Patient Instructions: Lymphadenopathy Additional Instructions: if your pain gets worse, if you develop fever, headache or next stiffness return to the ED Tiburcio Hendrickson MD Oct 08, 2020 10:06
== END 2020-10-07 11:00 | disposition home or self-care (01) ==
LOC: EMR 10:56
DX: R68.84 Jaw pain (principal); U07.1 COVID-19; Z85.41 Personal history of malignant neoplasm of cervix uteri; Z88.8 Allergy status to other drugs, medicaments and biological substances
CPT/HCPCS: 99282

== ENCOUNTER 2020-10-30 01:12 | Emergency (ER) | payer MEDICAID ==
[~2020-10-30] VITALS: Ht 162.6 cm; Wt 81.6 kg
[~2020-10-30 01:12] MED LIST changes: +AUGMENTIN 875-1 EAC1 ORAL
--- NOTE | 2020-10-30 01:34 | Emergency Room Report ---
History of Present Illness General Chief Complaint: General Complaint Source: Patient Present Illness HPI Is a 25-year-old female with no significant past medical history patient presents with chief complaint of neck pain and jaw pain. This been ongoing for about a month now. This occurred after she was taking dexamethasone for Covid infection. She said now her jaws are hurting more. Especially when she is to something hard. She felt this popping. She also complained of neck pain but mostly the left side. Worse with movement. No fever chills but no nausea no vomiting. Now she still having some runny nose and is a slight cough. Pain in her neck is causing migraine to be triggered. That improved with Excedrin. 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 COVID-19 Screening: Negative COVID-19 COVID-19 Testing Source: [email or web address] Patient History Past Medical History: see triage record, old chart reviewed Past Surgical History: none Pertinent Family History: none Social History: Denies: smoking Last Menstrual Period: 10/09/20 Now: No Immunizations: other Reviewed Nursing Documentation: PMH: Agreed; PSxH: Agreed Nursing Documentation-PMH Past Medical History: No History, Except For Hx Asthma: No - Tonsilitis Hx Cancer: Yes - cervical cancer Hx Gastrointestinal Problems: No - Hx Neurological Problems: No - Left knee surgery Review of Systems Eye: Denies: eye pain, blurred vision ENT: Denies: ear pain, nose congestion, throat swelling Respiratory: Denies: cough, shortness of breath Cardiovascular: Denies: chest pain, palpitations Gastrointestinal: Denies: abdominal pain, diarrhea, nausea, vomiting Musculoskeletal: Denies: back pain, joint pain Skin: Denies: rash Neurological: Denies: headache, numbness Endocrine: Denies: increased thirst, increased urine Hematologic/Lymphatic: Denies: easy bruising All Other Systems: negative except mentioned in HPI Physical Exam Vital Signs Date Time Temp Pulse Resp B/P (MAP) Pulse Ox O2 Delivery O2 Flow Rate FiO2 10/30/20 01:17 98.4 102 18 133/78 (96) 98 Room Air Vitals unremarkable Sp02 EP Interpretation: reviewed, normal General Appearance: well appearing, no apparent distress, alert Head: normocephalic, atraumatic Eyes: bilateral eye PERRL, bilateral eye EOMI ENT: hearing grossly normal, normal pharynx Neck: full range of motion, supple, no meningismus, tender - Tenderness to palpation along the left paraspinous area. Respiratory: chest non-tender, lungs clear, normal breath sounds Cardiovascular #1: regular rate, rhythm, no murmur Gastrointestinal: normal bowel sounds, non tender, no mass, no organomegaly, no bruit, non-distended Musculoskeletal: back normal, normal range of motion, gait/station normal Psychiatric: mood/affect normal Medical Decision Making Diagnostic Impression: Primary Impression: TMJ arthralgia Qualified Codes: M26.629 - Arthralgia of temporomandibular joint, unspecified side Additional Impression: Strain of neck muscle Qualified Codes: S16.1XXA - Strain of muscle, fascia and tendon at neck level, initial encounter ER Course Patient with soft tissue injury. No fracture or dislocation. No evidence of any meningitis. Will discharge home. Last Vital Signs Date Time Temp Pulse Resp B/P (MAP) Pulse Ox O2 Delivery O2 Flow Rate FiO2 10/30/20 01:17 98.4 102 18 133/78 (96) 98 Room Air Status: improved Disposition: HOME, SELF-CARE Condition: Stable Scripts Gabapentin* (GABAPENTIN*) 100 Mg Capsule 100 MG ORAL THREE TIMES A DAY, #30 CAP Prov: Darian Garcia MD 10/30/20 Hydrocodone/Acetaminophen 5-325* (HYDROCODONE/ACETAMINOPHEN 5-325*) 1 Each Tablet 1 TAB ORAL Q6H PRN for For Pain, #15 TAB 0 Refills Prov: Darian Garcia MD 10/30/20 Additional Instructions: Follow-up with your doctor in 7 days but return if symptoms worsen. Darian Garcia MD Oct 30, 2020 01:33
[2020-10-30 01:42] VITALS: BP 133/78
[2020-10-30] MEDS ORDERED: HYDROcodone/Acetamin 5/325 tab ORAL ONE (01:45)
--- NOTE | 2020-10-30 02:39 | Diagnostic Imaging Report ---
EXAM: CT Cervical Spine Without Intravenous Contrast CLINICAL HISTORY: PAIN TECHNIQUE: Axial computed tomography images of the cervical spine without intravenous contrast. CTDI is 20.20 mGy and DLP is 647.80 mGy-cm. One or more of the following dose reduction techniques were used: automated exposure control, adjustment of the mA and/or kV according to patient size, use of iterative reconstruction technique. COMPARISON: No relevant prior studies available. FINDINGS: The vertebral body heights are maintained. There is no spondylolisthesis. The craniocervical junction is intact. The atlanto-dens interval is maintained. The dens is intact. Mild straightening of the cervical lordosis. No high-grade spinal canal or foraminal stenosis. No intervertebral disc is narrowing. The unenhanced neck soft tissues are grossly unremarkable. The visualized lung apices are grossly clear. IMPRESSION: No acute fracture or subluxation of the cervical spine.
[2020-10-30] MEDS ORDERED: HYDROCODON-ACE1 EA15 ORAL (02:41)
[2020-10-30] MEDS ORDERED: GABAPENTIN100 MG ORAL (02:41)
[2020-10-30] MEDS ORDERED: IBUPROFEN600 M1 ORAL (02:43)
[2020-10-30 02:46] VITALS: BP 132/14
== END 2020-10-30 02:45 | disposition home or self-care (01) ==
LOC: EMR 01:33
DX: M26.629 Arthralgia of temporomandibular joint, unspecified side (principal); S16.1XXA Strain of muscle, fascia and tendon at neck level, initial encounter; X58.XXXA Exposure to other specified factors, initial encounter; Y92.9 Unspecified place or not applicable; Z88.8 Allergy status to other drugs, medicaments and biological substances; Z85.41 Personal history of malignant neoplasm of cervix uteri
CPT/HCPCS: 72125; Z7502; 99284